=== PATIENT | female | born 1935 | race Two or more races ===

== ENCOUNTER 2017-06-23 01:09 | Inpatient (IN) | payer MEDICARE, MEDICAID ==
[~2017-06-23] VITALS: Ht 162.6 cm; Wt 105.4 kg
[~2017-06-23 01:09] MED LIST: BLOO-129 IN; ENAL10TA75 PO; FERR325T28 PO; GLYB5TAB7 PO; HUM10VIA SQ; INSU100V7 SQ; METO-304 PO; ZOLP10TA6 PO
--- NOTE | 2017-06-23 01:10 | NUR ---
TO BED 4 AN 81 YO FEMALE PT BIBA#102 FROM HOME, PT C/O SOB AND CHEST PRESSURE X 2 DAYS PT WAS GIVEN WITH 5MG ALBUTEROL. UPON ARRIVAL, PATIENT IS AAOX3, ST HELENIAN SPEAKING, NAD NOTED. VSS. NONDIAPHORETIC. PLACED ON CARDIAC AND VS MONITORING. KEPT HOB ELEVATED. COMFORT MEASURES RENDERED.
--- NOTE | 2017-06-23 01:24 | NUR ---
Dr Garcia at bedside to evaluate patient.
[2017-06-23] MEDS ORDERED: predniSONE 20 MG TABLET PO ONE (01:30)
[2017-06-23] MEDS ORDERED: ALBUTEROL FS 2.5 MG/3 ML VIAL.NEB CONTNEB ONE (01:30)
[2017-06-23] MEDS ORDERED: ASPIRIN 81 MG TAB.CHEW PO ONE (01:30)
[2017-06-23] MEDS ORDERED: ALBUTEROL FS 2.5 MG/3 ML VIAL.NEB ONE (01:31)
--- NOTE | 2017-06-23 01:35 | NUR ---
STARTED A SALINE LOCK ON THE RAC G20, BLOOD DRAWN AND SENT TO LAB.
[2017-06-23] MEDS ORDERED: ASPIRIN 81 MG TAB.CHEW ONE (01:49)
[2017-06-23] MEDS ORDERED: predniSONE 20 MG TABLET ONE (01:49)
[2017-06-23 02:00] LABS: BASOPHILS % (AUTO) 0.4 % (0.0-2.0); EOSINOPHILS % (AUTO) 0.4 % (0.0-6.0); HEMATOCRIT 26 % (33-45); HEMOGLOBIN 8.1 g/dL (11.5-14.8); LYMPHOCYTES # (AUTO) 3.3 /CMM (0.8-4.8); LYMPHOCYTES % (AUTO) 47.1 % (20.0-44.0); MEAN CORPUSCULAR HEMOGLOBIN 26 PG (26.0-33.0); MEAN CORPUSCULAR HGB CONC 31 g/dl (31.0-36.0); MEAN CORPUSCULAR VOLUME 84 fL (82-100); MONOCYTES # (AUTO) 1.1 /CMM (0.1-1.30); MONOCYTES % (AUTO) 15.9 % (2.0-12.0); NEUTROPHILS # (AUTO) 2.5 /CMM (1.8-8.9); NEUTROPHILS % (AUTO) 36.2 % (43.0-81.0); PLATELET COUNT (AUTO) 236 /CMM (150-450); RDW COEFFICIENT OF VARIATION 16.5 (11.5-15.0); RED BLOOD CELL COUNT(AUTO) 3.05 MIL/uL (4.0-5.2); WHITE BLOOD COUNT (AUTO) 6.9 K/uL (4.3-11.0)
[2017-06-23 02:13] LABS: D-DIMER 1.08 mg/L(FEU (0.17-0.50); INR 0.99 (0.87-1.13); PROTHROMBIN TIME 10.3 SECS (9.5-12.7)
[2017-06-23 02:19] LABS: ALANINE AMINOTRANSFERASE 20 U/L (12-78); ALBUMIN 3.1 g/dL (3.4-5.0); ALKALINE PHOSPHATASE 102 U/L (46-116); ASPARTATE AMINOTRANSFERASE 16 U/L (15-37); B-TYPE NATRIURETIC PEPTIDE 4768 PG/ML (0-125); BILIRUBIN,DIRECT 0.1 mg/dL (0.0-0.2); BILIRUBIN,TOTAL 0.3 mg/dL (0.2-1.0); CALCIUM, SERUM 8.3 mg/dL (8.5-10.1); CARBON DIOXIDE 29 mmol/L (21-32); CHLORIDE 102 mmol/L (98-107); CREATININE 1.9 mg/dL (0.6-1.3); GLUCOSE 349 mg/dL (74-106); POTASSIUM 4.4 mmol/L (3.5-5.1); SODIUM SERUM 137 mmol/L (136-145); UREA NITROGEN, BLOOD 45 mg/dL (7-18)
--- NOTE | 2017-06-23 03:16 | NUR ---
DR. GRADY JOYNER
[2017-06-23] MEDS ORDERED: REPA2TAB9 PO (03:17)
[2017-06-23] MEDS ORDERED: ALPR0.255 PO (03:17)
[2017-06-23] MEDS ORDERED: FERR325T28 PO (03:24)
[2017-06-23] MEDS ORDERED: METO25TA6 PO (03:24)
[2017-06-23] MEDS ORDERED: ATOR20TA PO (03:24)
[2017-06-23] MEDS ORDERED: INSU3INS9 SQ (03:24)
[2017-06-23] MEDS ORDERED: LISI-607 PO (03:24)
[2017-06-23] MEDS ORDERED: FURO40SO2 PO (03:24)
[2017-06-23] MEDS ORDERED: ZOLP10TA6 PO (03:24)
--- NOTE | 2017-06-23 03:26 | NUR ---
TELE 307-6
--- NOTE | 2017-06-23 03:33 | NUR ---
Report given to Chiquita BROTHERS for admission and rae.
--- NOTE | 2017-06-23 03:35 | NUR ---
RECEIVED REPORT FROM NOVEMBER IN THE ED.
[2017-06-23 04:00] VITALS: BP 112/47
--- NOTE | 2017-06-23 04:00 | NUR ---
CAREERS ADVISER ADMISSION NOTES PT ARRIVED ON TO THE UNIT AT 0400 VIA GURNEY AND DAUGHTER AT SIDE. PT HAS A R AC #20 IV. NO COMPLAINTS OF PAIN OR SOB AT THIS TIME. PT DAUGHTER STATED THAT IT IS HARD FOR HER TO BREATH WHEN FLAT ON BACK. PT V/S ARE STABLE. PT ON 2L O2 VIA NASAL CANNULA. PT TELE MONITORED: AFIB WITH A RATE OF 104. ORIENTED PT TO USE OF CALL LIGHT. WILL CONTINUE TO MONITOR. SAFETY PRECAUTIONS IN PLACE, BED IN LOW LOCKED POSITION, WITH 2X SIDERAILS UP.
--- NOTE | 2017-06-23 04:00 | NUR ---
Transferred patient to tele bed 307-2 via als protocol, no incident noted.
[2017-06-23] MEDS ORDERED: DEXTROSE 50%-WATER 50 ML DISP.SYRIN IV PRN (05:30)
[2017-06-23] MEDS ORDERED: ONDANSETRON HCL/PF 4 MG/2 ML VIAL IVP PRN (05:30)
[2017-06-23] MEDS ORDERED: MORPHINE SULFATE INJ 2 MG/ML DISP.SYRIN IV PRN (05:30)
[2017-06-23] MEDS ORDERED: ACETAMINOPHEN 325 MG TABLET PO PRN (05:30)
[2017-06-23] MEDS: BLOOD SUGAR DIAGNOSTIC 1 EACH STRIP IN SCH ×4 (06:29→21:45)
--- NOTE | 2017-06-23 06:47 | NUR ---
NM:LUNG V/Q WAS COMPLETED. TECH:RB
[2017-06-23 06:51] LABS: HEMATOCRIT 26 % (33-45); HEMOGLOBIN 8.2 g/dL (11.5-14.8); LYMPHOCYTES # (AUTO) 0.6 /CMM (0.8-4.8); LYMPHOCYTES % (AUTO) 10.1 % (20.0-44.0); MEAN CORPUSCULAR HEMOGLOBIN 27 PG (26.0-33.0); MEAN CORPUSCULAR HGB CONC 32 g/dl (31.0-36.0); MEAN CORPUSCULAR VOLUME 86 fL (82-100); MONOCYTES # (AUTO) 0.3 /CMM (0.1-1.30); MONOCYTES % (AUTO) 4.5 % (2.0-12.0); NEUTROPHILS % (AUTO) 85.4 % (43.0-81.0); PLATELET COUNT (AUTO) 240 /CMM (150-450); RDW COEFFICIENT OF VARIATION 16.9 (11.5-15.0); RED BLOOD CELL COUNT(AUTO) 3.03 MIL/uL (4.0-5.2); WHITE BLOOD COUNT (AUTO) 5.9 K/uL (4.3-11.0)
[2017-06-23 06:59] LABS: ALANINE AMINOTRANSFERASE 20 U/L (12-78); ALBUMIN 3.2 g/dL (3.4-5.0); ALKALINE PHOSPHATASE 101 U/L (46-116); ASPARTATE AMINOTRANSFERASE 16 U/L (15-37); BILIRUBIN,TOTAL 0.3 mg/dL (0.2-1.0); CALCIUM, SERUM 8.3 mg/dL (8.5-10.1); CARBON DIOXIDE 25 mmol/L (21-32); CHLORIDE 101 mmol/L (98-107); CREATININE 2.1 mg/dL (0.6-1.3); MAGNESIUM 1.8 mg/dL (1.8-2.4); PHOSPHORUS 4.1 mg/dL (2.5-4.9); POTASSIUM 4.4 mmol/L (3.5-5.1); SODIUM SERUM 136 mmol/L (136-145); UREA NITROGEN, BLOOD 48 mg/dL (7-18)
[2017-06-23 07:01] LABS: TROPONIN I 0.078 ng/mL (0.00-0.056)
--- NOTE | 2017-06-23 07:01 | NUR ---
HEALTH EQUIPMENT SERVICER CLOSING NOTES PT RESTING IN BED. DAUGHTER AT BEDSIDE. NO COMPLAINTS OF PAIN AT THIS TIME. PT COMPLAINS OF SOB WHEN LAYING FLAT. PT ABLE TO AMBULATE TO BEDSIDE COMMODE. PT HAS A R AC #20 IV PATENT AND INTACT. SAFETY PRECAUTIONS IN PLACE. BED IN LOW LOCKED, POSITION, 2XSIDERAILS UP AND CALL LIGHT WITHIN REACH. WILL ENDORSE TO DAY SHIFT NURSE FOR CONTINUITY OF CARE.
[2017-06-23 07:06] LABS: CHOLESTEROL 116 mg/dL (<200); HDL CHOLESTEROL 35 mg/dL (40-60); LDL 52 mg/dL (0-99); THYROID STIMULATING HORMONE 0.339 uIU/mL (0.358-3.74); TRIGLYCERIDES 205 mg/dL (30-150)
--- NOTE | 2017-06-23 07:22 | NUR ---
RN OPENING NOTES RECEIVED PATIENT IN BED RESTING, DAUGHTER AT BED SIDE. NO ACUTE DISTRESS. ON 2LPM O2 VIA NC, HEAD OF BED ELEVATED. DENIES PAIN AT THE MOMENT. ON TELEMONITOR, AFIB HR 94. IV SITE INTACT AND PATENT. KEPT PATIENT SAFE AND COMFORTABLE. BED IN LOW POSITION, LOCKED, SIDERAILS UPX2. CALL LIGHT IN REACH. WILL CONTINUE TO MONITOR ACCORDINGLY.
[2017-06-23 07:28] LABS: IRON, SERUM 21 ug/dl (50-175); TOTAL IRON BINDING CAPACITY 355 ug/dl (250-450)
[2017-06-23 07:33] LABS: GLUCOSE 465 mg/dL (74-106)
--- NOTE | 2017-06-23 07:34 | NUR ---
RECEIVED A CALL FROM THE LAB THAT THE PATIENT HAS A CRITICAL LAB VALUE. PT GLUCOSE IS 465. DEVON ASIF, DAY SHIFT NURSE AWARE.
--- NOTE | 2017-06-23 07:55 | NUR ---
RN NOTES RECHECK BLOOD GLUCOSE LEVEL, AK=[id number], WILL NOTIFY .
[2017-06-23 08:00] VITALS: BP 114/60
--- NOTE | 2017-06-23 08:15 | NUR ---
RN NOTES DR HIGGINBOTHAM NOTIFIED OF PATIENT BLOOD GLUCOSE LEVEL. NO NEW ORDERS
[2017-06-23] MEDS ORDERED: FERROUS SULFATE (325 MG) 325 MG/TAB TABLET PO SCH ×2 (09:00)
[2017-06-23] MEDS ORDERED: BUMETANIDE INJ 0.25 MG/ML VIAL IV SCH (09:00)
--- NOTE | 2017-06-23 09:00 | NUR ---
RN NOTES DR JUNG ON BEDSIDE TALKING TO THE DAUGHTER AND PATIENT. NO NEW ORDERS NOTED. PATIENT NOT A CANDIDATE FOR ANTICOAGULANT PER DR JUNG.
[2017-06-23] MEDS: PANTOPRAZOLE 40 MG TABLET.DR PO SCH (09:03)
[2017-06-23] MEDS: DOCUSATE SODIUM 100 MG CAPSULE PO SCH ×2 (09:04→16:29)
[2017-06-23] MEDS: METOPROLOL TARTRATE 25 MG TABLET PO SCH ×2 (09:10→16:30)
[2017-06-23] MEDS: INSULIN REGULAR, HUMAN 100 UNIT/ML 3 ML VIAL SQ PRN (09:16)
--- NOTE | 2017-06-23 09:18 | NUR ---
RN NOTES LK=822, 20 UNITS INSULIN GIVEN ORDERED. WILL MONITOR ACCORDINGLY.
[2017-06-23] MEDS: FUROSEMIDE 100 MG/10 ML VIAL IV SCH ×3 (11:19→17:55)
[2017-06-23] MEDS: REPAGLINIDE 2 MG TABLET PO SCH ×3 (11:19→16:30)
[2017-06-23] MEDS: LISINOPRIL (5MG) 5 MG TABLET PO SCH (11:20)
[2017-06-23] MEDS ORDERED: INSULIN REGULAR, HUMAN 100 UNIT/ML 3 ML VIAL IV ONE (11:30)
--- NOTE | 2017-06-23 11:52 | NUR ---
RN NOTES BS= 584, NOTIFIED DR VUONG. NEW ORDER OF ONE TIME INSULIN 12 UNITS IV NOTED AND CARRIED OUT.
[2017-06-23 12:00] VITALS: BP 108/52
--- NOTE | 2017-06-23 15:37 | NUR ---
RN NOTES BS= 554 mg/dl. NOTIFIED DR HIGGINBOTHAM. NEW ORDER OF REGULAR INSULIN 12 UNITS IVP ONCE. WILL MONITOR ACCORDINGLY.
[2017-06-23 16:00] VITALS: BP 99/56
[2017-06-23] MEDS ORDERED: INSULIN REGULAR, HUMAN 100 UNIT/ML 10 ML VIAL IV ONE ×2 (16:00→18:00)
[2017-06-23] MEDS: SOD FERRIC GLUC 125 MG in IV NS 0.9% 100 ML IV SCH (16:14)
--- NOTE | 2017-06-23 18:15 | NUR ---
RN NOTES BS= 472 mg/dl. NOTIFIED DR HIGGINBOTHAM, NEW ORDER OF 12 UNITS INSULIN REGULAR IVP X1 NOTED AND CARRIED OUT.
[2017-06-23 19:16] LABS: CREATININE, URINE 30.4 MG/DL (30.0-125.0)
--- NOTE | 2017-06-23 19:20 | NUR ---
RN CLOSING NOTES PATIENT IN BED RESTING, DAUGHTER ON BEDSIDE. NO ACUTE DISTRESS, NO SOB NOTED, DENIES PAIN OR DISCOMFORT. ALL NEEDS ATTENDED AND PROVIDED. KEPT PATIENT SAFE AND COMFORTABLE. BED IN LOCKED, LOW POSITION, HOB ELEVATED, SIDERAILS UPX2, CALL LIGHT IN REACH. ENDORSED TO OFFAL WORKER RN FOR MONI.
--- NOTE | 2017-06-23 19:30 | NUR ---
ROR ENGINEER OPENING NOTES PT RESTING IN BED. DAUGHTER AT BEDSIDE. NO COMPLAINTS OF PAIN AT THIS TIME. PT ABLE TO AMBULATE TO BEDSIDE COMMODE. PT HAS A R AC #20 IV PATENT AND INTACT. SAFETY PRECAUTIONS IN PLACE. BED IN LOW LOCKED, POSITION, 2XSIDERAILS UP AND CALL LIGHT WITHIN REACH. WILL CONTINUE TO MONITOR.
[2017-06-23 20:15] VITALS: BP 105/56
[2017-06-23] MEDS: ATORVASTATIN 10 MG TABLET PO SCH (21:45)
--- NOTE | 2017-06-23 21:50 | NUR ---
PT BLOOD GLUCOSE LEVEL IS 495. WILL CALL DR TO F/U.
--- NOTE | 2017-06-23 22:00 | NUR ---
RN NOTES SPOKE WITH BEATRIZ LIFT MECHANIC, REGARDING UNCONTROLLED BLOOD SUGAR LEVEL. BEATRIZ ORDERED FOR PT TO BE TRANSFERRED TO ICU FOR INSULIN DRIP. WILL ENDORSE TO TO ICU NURSE FOR CONTINUITY OF CARE.
--- NOTE | 2017-06-23 22:35 | NUR ---
TRANSPORTED PT OFF THE UNIT VIA BED. PT ACCOMPANIED BY DAUGHTER. PT CHART AND BELONGINGS TRANSPORTED WITH PT. GAVE REPORT TO ZEV ESPINAL.
--- NOTE | 2017-06-23 23:00 | NUR ---
CLERICAL CLERK - REC'D PT. AT 22:30 FROM 3WEST DUE TO DKA DX. PT'S BS'S HAVE BEEN IN THE 400-500'S ALL DAY. PT. IS TO BE STARTED ON INSULIN GTT. BEATRIZ ROJO/JHOANA WAS PHONED FOR ORDERS. ORDERS REC'D. PT'S DAUGHTER AT BS. ACCU - CHECKS WILL BE DONE Q ONE HR. VSS. AFEBRILE. MONITOR CLOSELY.
[2017-06-23] MEDS ORDERED: INSULIN REGULAR, HUMAN 100 UNIT in IV NS 0.9% 99 ML IV PRN ×2 (23:30)
[2017-06-23] MEDS ORDERED: INSULIN REGULAR, HUMAN 100 UNIT/ML 3 ML VIAL ONE (23:37)
[2017-06-24] VITALS (29 sets, daily range): BP systolic 94–122; BP diastolic 44–70
--- NOTE | 2017-06-24 02:00 | NUR ---
PAYROLL BENEFITS CLERK - PT'S BS'S REMAIN IN THE 400'S, BUT IS COMING DOWN SLOWLY. CONT. Q/HR ACCUCHECKS. CONT. POC.
[2017-06-24 04:56] LABS: HEMATOCRIT 25 % (33-45); LYMPHOCYTES # (AUTO) 0.9 /CMM (0.8-4.8); LYMPHOCYTES % (AUTO) 11.6 % (20.0-44.0); MEAN CORPUSCULAR HEMOGLOBIN 27 PG (26.0-33.0); MEAN CORPUSCULAR HGB CONC 32 g/dl (31.0-36.0); MEAN CORPUSCULAR VOLUME 85 fL (82-100); MONOCYTES # (AUTO) 0.9 /CMM (0.1-1.30); MONOCYTES % (AUTO) 11.5 % (2.0-12.0); NEUTROPHILS # (AUTO) 5.8 /CMM (1.8-8.9); NEUTROPHILS % (AUTO) 76.9 % (43.0-81.0); PLATELET COUNT (AUTO) 238 /CMM (150-450); RDW COEFFICIENT OF VARIATION 16.6 (11.5-15.0); RED BLOOD CELL COUNT(AUTO) 2.93 MIL/uL (4.0-5.2); WHITE BLOOD COUNT (AUTO) 7.5 K/uL (4.3-11.0)
[2017-06-24 05:55] LABS: ALANINE AMINOTRANSFERASE 18 U/L (12-78); ALKALINE PHOSPHATASE 92 U/L (46-116); ASPARTATE AMINOTRANSFERASE 13 U/L (15-37); BILIRUBIN,TOTAL 0.2 mg/dL (0.2-1.0); CALCIUM, SERUM 8.4 mg/dL (8.5-10.1); CARBON DIOXIDE 28 mmol/L (21-32); CHLORIDE 101 mmol/L (98-107); CREATININE 2.1 mg/dL (0.6-1.3); GLUCOSE 284 mg/dL (74-106); MAGNESIUM 1.9 mg/dL (1.8-2.4); PHOSPHORUS 3.4 mg/dL (2.5-4.9); POTASSIUM 4.7 mmol/L (3.5-5.1); SODIUM SERUM 137 mmol/L (136-145); TOTAL PROTEIN, SERUM 6.8 g/dL (6.4-8.2); UREA NITROGEN, BLOOD 56 mg/dL (7-18)
[2017-06-24 06:15] LABS: TROPONIN I 3.073 ng/mL (0.00-0.056)
[2017-06-24 06:19] LABS: BAND % (MANUAL) 10 % (0.0-5.0); LYMPHOCYTES % (MANUAL) 14 % (16-48); MONOCYTES % (MANUAL) 15 % (0-11.0); NEUTROPHILS % (MANUAL) 61 (42-76)
--- NOTE | 2017-06-24 06:20 | NUR ---
GARMENT FOLDER - LAB PHONED W/REPORT TO ARCHITECTURE CONSULTANTZEV CASTAÑEDA. TROPONIN AT 3.073. DOCUMENTED[address] DR. GRADY VALENZUELA PHONED. AWAITING CALL BACK. CONT. POC.
[2017-06-24] MEDS: BLOOD SUGAR DIAGNOSTIC 1 EACH STRIP IN SCH ×4 (08:29→22:30)
[2017-06-24] MEDS: DOCUSATE SODIUM 100 MG CAPSULE PO SCH ×2 (08:31→18:01)
[2017-06-24] MEDS: METOPROLOL TARTRATE 25 MG TABLET PO SCH ×3 (08:32→18:00)
[2017-06-24] MEDS: PANTOPRAZOLE 40 MG TABLET.DR PO SCH (08:32)
[2017-06-24] MEDS: LISINOPRIL (5MG) 5 MG TABLET PO SCH (08:32)
[2017-06-24] MEDS: REPAGLINIDE 2 MG TABLET PO SCH ×3 (08:37→18:01)
[2017-06-24] MEDS: ASPIRIN 81 MG TAB.CHEW PO SCH (10:38)
[2017-06-24] MEDS: *INSULIN REGULAR(HUMULIN R)HUM 100 UNIT/ML VIAL SQ PRN ×3 (11:19→22:32)
[2017-06-24] MEDS: SOD FERRIC GLUC 125 MG in IV NS 0.9% 100 ML IV SCH ×2 (14:00→18:05)
--- NOTE | 2017-06-24 16:17 | NUR ---
CUSTOMER EXPERIENCE MANAGER NOTE RECEIVED PT ON BED ,AOX4, DENIES PAIN, DAUGHTER AT BEDSIDE, NO SOB, NO DISTRESS. CALL LIGHT WITHIN REACH WILL CONTINUE TO MONITOR.
[2017-06-24] MEDS: ALPRAZOLAM 0.25 MG TABLET PO PRN (19:19)
[2017-06-24] MEDS: ATORVASTATIN 10 MG TABLET PO SCH (22:37)
[2017-06-24] MEDS ORDERED: GUAIFENESIN/D-METHORPHAN HB 5 ML UDC ONE (23:00)
[2017-06-24] MEDS: GUAIFENESIN/D-METHORPHAN HB 5 ML UDC PO PRN (23:02)
[2017-06-25] VITALS: BP 120/58
[2017-06-25] MEDS: ZOLPIDEM TARTRATE 10 MG TABLET PO PRN (00:50)
[2017-06-25] MEDS: METOPROLOL TARTRATE 25 MG TABLET PO SCH ×4 (00:51→17:17)
[2017-06-25 04:00] VITALS: BP 126/54
[2017-06-25] MEDS: BLOOD SUGAR DIAGNOSTIC 1 EACH STRIP IN SCH ×4 (07:53→22:00)
[2017-06-25] MEDS: INSULIN REGULAR, HUMAN 100 UNIT/ML 3 ML VIAL SQ PRN ×2 (07:56→12:02)
[2017-06-25 08:00] VITALS: BP 107/44
[2017-06-25] MEDS: DOCUSATE SODIUM 100 MG CAPSULE PO SCH ×2 (08:45→16:40)
[2017-06-25] MEDS: ASPIRIN 81 MG TAB.CHEW PO SCH (08:46)
[2017-06-25] MEDS: PANTOPRAZOLE 40 MG TABLET.DR PO SCH (08:46)
[2017-06-25] MEDS: REPAGLINIDE 2 MG TABLET PO SCH ×3 (09:04→16:40)
[2017-06-25] MEDS: ALPRAZOLAM 0.25 MG TABLET PO PRN (09:24)
[2017-06-25 09:27] LABS: BASOPHILS % (AUTO) 0.3 % (0.0-2.0); HEMATOCRIT 25 % (33-45); HEMOGLOBIN 7.8 g/dL (11.5-14.8); LYMPHOCYTES # (AUTO) 1.4 /CMM (0.8-4.8); LYMPHOCYTES % (AUTO) 16.3 % (20.0-44.0); MEAN CORPUSCULAR HEMOGLOBIN 26 PG (26.0-33.0); MEAN CORPUSCULAR HGB CONC 31 g/dl (31.0-36.0); MEAN CORPUSCULAR VOLUME 85 fL (82-100); MONOCYTES # (AUTO) 0.8 /CMM (0.1-1.30); NEUTROPHILS # (AUTO) 6.4 /CMM (1.8-8.9); NEUTROPHILS % (AUTO) 74.4 % (43.0-81.0); PLATELET COUNT (AUTO) 228 /CMM (150-450); RDW COEFFICIENT OF VARIATION 16.7 (11.5-15.0); RED BLOOD CELL COUNT(AUTO) 2.94 MIL/uL (4.0-5.2); WHITE BLOOD COUNT (AUTO) 8.6 K/uL (4.3-11.0)
[2017-06-25 09:40] LABS: ALANINE AMINOTRANSFERASE 14 U/L (12-78); ALBUMIN 2.9 g/dL (3.4-5.0); ALKALINE PHOSPHATASE 86 U/L (46-116); ASPARTATE AMINOTRANSFERASE 13 U/L (15-37); BILIRUBIN,TOTAL 0.3 mg/dL (0.2-1.0); CALCIUM, SERUM 8.1 mg/dL (8.5-10.1); CARBON DIOXIDE 28 mmol/L (21-32); CHLORIDE 101 mmol/L (98-107); CREATININE 1.7 mg/dL (0.6-1.3); GLUCOSE 245 mg/dL (74-106); MAGNESIUM 1.8 mg/dL (1.8-2.4); PHOSPHORUS 2.8 mg/dL (2.5-4.9); POTASSIUM 5.1 mmol/L (3.5-5.1); SODIUM SERUM 136 mmol/L (136-145); TOTAL PROTEIN, SERUM 6.6 g/dL (6.4-8.2); UREA NITROGEN, BLOOD 49 mg/dL (7-18)
[2017-06-25] MEDS: ALBUTEROL FS 2.5 MG/0.5 ML VIAL.NEB NEB PRN ×3 (10:10→23:50)
[2017-06-25] MEDS: SOD FERRIC GLUC 125 MG in IV NS 0.9% 100 ML IV SCH (14:49)
[2017-06-25 16:00] VITALS: BP 103/45
[2017-06-25] MEDS ORDERED: BUMETANIDE INJ 4 MG in IV NS 0.9% 24 ML IV ONE (16:00)
[2017-06-25] MEDS: FUROSEMIDE 40 MG/4 ML VIAL IV SCH (18:19)
--- NOTE | 2017-06-25 20:00 | NUR ---
Recieved patient in bed placed in a chair at the bedside with one nurse assist. Alert and orientated. Food brought in by dtr for the patient and consumed 100%. Via auscultation exp wheezing O2 on 2 Liters and sats 95%
[2017-06-25 20:13] VITALS: BP 110/55
[2017-06-25] MEDS: *INSULIN REGULAR(HUMULIN R)HUM 100 UNIT/ML VIAL SQ PRN (21:39)
[2017-06-25] MEDS: ATORVASTATIN 10 MG TABLET PO SCH (21:41)
[2017-06-26 00:01] VITALS: BP 126/53
[2017-06-26] MEDS: ZOLPIDEM TARTRATE 10 MG TABLET PO PRN ×2 (00:13→23:48)
[2017-06-26] MEDS: METOPROLOL TARTRATE 25 MG TABLET PO SCH ×4 (00:15→17:16)
[2017-06-26] MEDS: GUAIFENESIN/D-METHORPHAN HB 5 ML UDC PO PRN (04:02)
--- NOTE | 2017-06-26 04:33 | NUR ---
Patient is Alert and orientated X4. Arminian speaking, but able to understand some englih and gestors. Smiles frequently. Dtr stayed with Mother thru the night, assisting in her care. Patient is able to stand with minimal assist and move into cair. She will alternate thru the night bed to chair, D/T she says the bed hurts her back. Robutussion given for cough and effective. Ambien was given for sleep and effect for 3 hours sleeping in the chair. O2 on at 2 liters at times she will remove, but sats Good at 94 - 97 %. Noted via auscultation exp, wheezing
[2017-06-26 05:05] VITALS: BP 110/55
[2017-06-26] MEDS: ALBUTEROL FS 2.5 MG/0.5 ML VIAL.NEB NEB PRN (07:25)
[2017-06-26] MEDS: BLOOD SUGAR DIAGNOSTIC 1 EACH STRIP IN SCH ×4 (07:43→20:45)
[2017-06-26] MEDS: INSULIN REGULAR, HUMAN 100 UNIT/ML 3 ML VIAL SQ PRN ×3 (07:46→17:15)
[2017-06-26 08:00] VITALS: BP 113/60
[2017-06-26] MEDS: REPAGLINIDE 2 MG TABLET PO SCH ×3 (08:11→16:54)
[2017-06-26] MEDS: DOCUSATE SODIUM 100 MG CAPSULE PO SCH ×2 (08:11→16:53)
[2017-06-26] MEDS: PANTOPRAZOLE 40 MG TABLET.DR PO SCH (08:11)
[2017-06-26] MEDS: ASPIRIN 81 MG TAB.CHEW PO SCH (08:11)
[2017-06-26] MEDS: FUROSEMIDE 40 MG/4 ML VIAL IV SCH ×2 (08:11→16:53)
--- NOTE | 2017-06-26 08:12 | NUR ---
SOFT SUGAR SUPERVISOR NOTE PT DAUGHTER @ BEDSIDE REFUSED ASPIRIN. PATIENT DAUGHTER STATED IT LOWERS HER H/H.
[2017-06-26 08:32] LABS: BASOPHILS % (AUTO) 0.3 % (0.0-2.0); EOSINOPHILS % (AUTO) 0.3 % (0.0-6.0); HEMATOCRIT 25 % (33-45); HEMOGLOBIN 8.1 g/dL (11.5-14.8); LYMPHOCYTES # (AUTO) 2.2 /CMM (0.8-4.8); LYMPHOCYTES % (AUTO) 28.8 % (20.0-44.0); MEAN CORPUSCULAR HEMOGLOBIN 27 PG (26.0-33.0); MEAN CORPUSCULAR HGB CONC 32 g/dl (31.0-36.0); MEAN CORPUSCULAR VOLUME 85 fL (82-100); MONOCYTES # (AUTO) 0.9 /CMM (0.1-1.30); MONOCYTES % (AUTO) 11.9 % (2.0-12.0); NEUTROPHILS # (AUTO) 4.4 /CMM (1.8-8.9); NEUTROPHILS % (AUTO) 58.7 % (43.0-81.0); PLATELET COUNT (AUTO) 225 /CMM (150-450); RDW COEFFICIENT OF VARIATION 16.8 (11.5-15.0); RED BLOOD CELL COUNT(AUTO) 2.95 MIL/uL (4.0-5.2); WHITE BLOOD COUNT (AUTO) 7.5 K/uL (4.3-11.0)
[2017-06-26 09:11] LABS: ALANINE AMINOTRANSFERASE 17 U/L (12-78); ALBUMIN 2.9 g/dL (3.4-5.0); ALKALINE PHOSPHATASE 86 U/L (46-116); ASPARTATE AMINOTRANSFERASE 17 U/L (15-37); BILIRUBIN,TOTAL 0.4 mg/dL (0.2-1.0); CALCIUM, SERUM 8.4 mg/dL (8.5-10.1); CARBON DIOXIDE 29 mmol/L (21-32); CHLORIDE 100 mmol/L (98-107); CREATININE 1.8 mg/dL (0.6-1.3); MAGNESIUM 1.9 mg/dL (1.8-2.4); PHOSPHORUS 3.7 mg/dL (2.5-4.9); POTASSIUM 5.7 mmol/L (3.5-5.1); SODIUM SERUM 135 mmol/L (136-145); TOTAL PROTEIN, SERUM 6.7 g/dL (6.4-8.2); UREA NITROGEN, BLOOD 60 mg/dL (7-18)
[2017-06-26 09:20] LABS: GLUCOSE 360 mg/dL (74-106)
[2017-06-26] MEDS ORDERED: SODIUM POLYSTYRENE SULFONATE 15 G/60 ML BOTTLE PO ONE (14:00)
[2017-06-26] MEDS: SOD FERRIC GLUC 125 MG in IV NS 0.9% 100 ML IV SCH (14:47)
[2017-06-26] MEDS ORDERED: AZITHROMYCIN 250 MG TABLET PO SCH (15:00)
[2017-06-26] MEDS ORDERED: CEFTRIAXONE 1 G in IV D5W 50 ML IV SCH (15:00)
[2017-06-26 16:00] VITALS: BP 113/49
[2017-06-26 20:00] VITALS: BP 125/49
--- NOTE | 2017-06-26 20:00 | NUR ---
RN NOTES RECEIVED PT. AWAKE ON BED, THEODORE SPEAKING A/OX4, DAUGHTER AT BEDSIDE, DENIES PAIN, NO SOB, CALL LIGHT WIOTHIN REACH, SIDERAILS UPX2 CONTINUE TO MONITOR
[2017-06-26] MEDS: INSULIN DETEMIR 100 UNIT/ML CARTRIDGE SQ SCH (20:53)
[2017-06-26] MEDS: *INSULIN REGULAR(HUMULIN R)HUM 100 UNIT/ML VIAL SQ PRN (20:54)
[2017-06-26] MEDS: ATORVASTATIN 10 MG TABLET PO SCH (21:12)
--- NOTE | 2017-06-26 23:50 | NUR ---
RN NOTES PT. ASKED FOR SLEEPING PILL- AMBIEN 5MG PO GIVEN ORDERED, V/S STABLE
--- NOTE | 2017-06-27 | NUR ---
RN NOTES PT. DAUGHTER TOLD ME NOT TO GIVE PT. LOPRESSOR 50 MG PO. THE IMPORTANCE OF THE MEDICATION WAS EXPLAINED , STILL DAUGHTER REFUSED IT
[2017-06-27] MEDS: GUAIFENESIN/D-METHORPHAN HB 5 ML UDC PO PRN (02:22)
--- NOTE | 2017-06-27 02:25 | NUR ---
RN NOTES COMPLAINED 0F COUGHING ROBITUSSIN DM GIVEN ORDERED
[2017-06-27 04:00] VITALS: BP 114/51
[2017-06-27] MEDS: METOPROLOL TARTRATE 25 MG TABLET PO SCH ×2 (06:00)
--- NOTE | 2017-06-27 06:00 | NUR ---
RN NOTES PT. DAUGHTER STILL REFUSING FOR ME TO GIVE LOPRESSOR 50 MG PO. EXPLAINED THE IMPORTANCE OF THE MEDICATION BUT STILL DOESN'T WANT ME TO GIVE IT. CHARGE NURSE MADE AWARE
--- NOTE | 2017-06-27 06:33 | NUR ---
RN NOTES PT. IS AWAKE, SITTING IN THE CHAIR, DENIES PAIN, NO SOB, DAUGHTER AT BEDSIDE, CALL LIGHT WITHIN REACH, SIDERAILS UPX2 PT. NEEDS ATTENDED
--- NOTE | 2017-06-27 07:30 | NUR ---
RN NOTES RECEIVED PT. AWAKE ON BED, YI SPEAKING A/OX4, DAUGHTER AT BEDSIDE, ON 2L O2 NC, NOT IN ANY DISTRESS, DENIES PAIN, LYNDSAY MIDLINE, FLUSHES WELL, SITE CLEAR. DENIES PAIN, NO SOB, PERRY CATH IN PLACE WITH 150 ML OUTPUT. CALL LIGHT WITHIN REACH, SIDERAILS UPX2 WILL CONTINUE TO MONITOR
[2017-06-27 08:00] VITALS: BP_SYST 125; BP_SYST 143; BP_DIAS 57; BP_DIAS 63
[2017-06-27] MEDS: BLOOD SUGAR DIAGNOSTIC 1 EACH STRIP IN SCH (08:10)
[2017-06-27] MEDS: PANTOPRAZOLE 40 MG TABLET.DR PO SCH (08:12)
[2017-06-27 08:34] LABS: CALCIUM, SERUM 8.4 mg/dL (8.5-10.1); CARBON DIOXIDE 31 mmol/L (21-32); CHLORIDE 101 mmol/L (98-107); CREATININE 1.7 mg/dL (0.6-1.3); GLUCOSE 262 mg/dL (74-106); POTASSIUM 4.4 mmol/L (3.5-5.1); SODIUM SERUM 137 mmol/L (136-145); UREA NITROGEN, BLOOD 55 mg/dL (7-18)
[2017-06-27] MEDS: DOCUSATE SODIUM 100 MG CAPSULE PO SCH (09:10)
[2017-06-27] MEDS: ASPIRIN 81 MG TAB.CHEW PO SCH (09:10)
[2017-06-27] MEDS: REPAGLINIDE 2 MG TABLET PO SCH (09:10)
[2017-06-27] MEDS: INSULIN DETEMIR 100 UNIT/ML CARTRIDGE SQ SCH (09:12)
[2017-06-27] MEDS: *INSULIN REGULAR(HUMULIN R)HUM 100 UNIT/ML VIAL SQ PRN (09:13)
--- NOTE | 2017-06-27 09:30 | NUR ---
RN NOTES ADMINISTERED DUE MEDS.
[2017-06-27] MEDS ORDERED: FUROSEMIDE 100 MG/10 ML VIAL IV SCH (10:00)
--- NOTE | 2017-06-27 11:30 | NUR ---
ZEV JEFFREY PATIENT DISCHARGED TO HOME TODAY PER MD IN STABLE CONDITION. PROVIDED DC INSTRUCTIONS, MED RECON LIST AND HEALTH TEACHINGS. IV ACCESS, LYNDSAY MIDLINE REMOVED, NO BLEEDING, DRESSING IN PLACE, REMOVED PERRY CATH WITH 250 ML OUTPUT, TO FOLLOW UP WITH PCP IN 1 WEEK AND WILL MAKE OWN APPOINTMENT. ALL BELONGINGS CHECKED AND RETURNED, ALL PAPERWORKS SIGNED. DAUGHTER TO TAKE HOME PATIENT VIA PRIVATE CAR.
== END 2017-06-27 11:33 | disposition home or self-care (01) | DRG 280 ==
LOC: ER 01:11 → TELE 03:41 → ICU 23:07 → TELE1 06-24 15:48 → MEDSG1 06-25 11:02
PROVIDERS: ADMIT Internal Medicine; ATTEND Internal Medicine
PROC: 05H633Z Insertion of Infusion Device into Left Subclavian Vein, Percutaneous Approach (ICD-10-PCS; principal; 2017-06-24)
PROC: B547ZZA Ultrasonography of Left Subclavian Vein, Guidance (ICD-10-PCS; 2017-06-24)
DX: I11.0 Hypertensive heart disease with heart failure (principal); I21.4 Non-ST elevation (NSTEMI) myocardial infarction; E43 Unspecified severe protein-calorie malnutrition; N17.9 Acute kidney failure, unspecified; D68.59 Other primary thrombophilia; E10.22 Type 1 diabetes mellitus with diabetic chronic kidney disease; E10.65 Type 1 diabetes mellitus with hyperglycemia; E87.0 Hyperosmolality and hypernatremia; Z68.41 Body mass index [BMI] 40.0-44.9, adult; E83.42 Hypomagnesemia; I50.23 Acute on chronic systolic (congestive) heart failure; I13.0 Hypertensive heart and chronic kidney disease with heart failure and stage 1 through stage 4 chronic kidney disease, or unspecified chronic kidney disease; E66.01 Morbid (severe) obesity due to excess calories; I48.91 Unspecified atrial fibrillation; I35.0 Nonrheumatic aortic (valve) stenosis; Z90.10 Acquired absence of unspecified breast and nipple; E78.5 Hyperlipidemia, unspecified; Z85.3 Personal history of malignant neoplasm of breast; Z79.899 Other long term (current) drug therapy; Z79.4 Long term (current) use of insulin; F41.9 Anxiety disorder, unspecified; F32.9 Major depressive disorder, single episode, unspecified; D50.9 Iron deficiency anemia, unspecified; I89.0 Lymphedema, not elsewhere classified; I70.0 Atherosclerosis of aorta; J20.9 Acute bronchitis, unspecified; N18.9 Chronic kidney disease, unspecified; G47.33 Obstructive sleep apnea (adult) (pediatric)
CPT/HCPCS: 36415; 36569; 71010-TC; 76770-TC; 78582; 80048-TC; 80053-TC; 80061-TC; 80076-TC; 82306; 82570-TC; 82962-TC; 83540-TC; 83735-TC; 83880; 84100-TC; 84439-TC; 84443-TC; 84484-TC; 85025-TC; 85378-TC; 85730-TC; 87081-TC; 93307-TC; 94799-TC; A4606; A9540; A9567; J0696; J1815; J1940; J2916; J3490; J7030; J7060; Z7610

== ENCOUNTER 2017-11-05 09:01 | Inpatient (IN) | payer MEDICARE, MEDICAID ==
[~2017-11-05] VITALS: Ht 152.4 cm; Wt 104.4 kg
[~2017-11-05 09:01] MED LIST changes: +ALPR0.255 PO; +ATOR20TA PO; -BLOO-129 IN; -ENAL10TA75 PO; +FURO40SO2 PO; -GLYB5TAB7 PO; -HUM10VIA SQ; -INSU100V7 SQ; +INSU3INS9 SQ; +LISI-607 PO; -METO-304 PO; +METO25TA6 PO; +REPA2TAB9 PO
--- NOTE | 2017-11-05 09:01 | NUR ---
[id number] FROM HOME SOB SINCE YESTERDAY. PLACED ON MONITOR. AWAITING MD ORDER.
[2017-11-05 09:24] LABS: BASOPHILS % (AUTO) 0.5 % (0.0-2.0); EOSINOPHILS % (AUTO) 1.8 % (0.0-6.0); HEMATOCRIT 26 % (33-45); HEMOGLOBIN 8.4 g/dL (11.5-14.8); LYMPHOCYTES # (AUTO) 1.3 /CMM (0.8-4.8); LYMPHOCYTES % (AUTO) 16.3 % (20.0-44.0); MEAN CORPUSCULAR HGB CONC 32 g/dl (31.0-36.0); MEAN CORPUSCULAR VOLUME 82 fL (82-100); MONOCYTES # (AUTO) 0.9 /CMM (0.1-1.30); MONOCYTES % (AUTO) 11.5 % (2.0-12.0); NEUTROPHILS # (AUTO) 5.4 /CMM (1.8-8.9); NEUTROPHILS % (AUTO) 69.9 % (43.0-81.0); PLATELET COUNT (AUTO) 223 /CMM (150-450); RDW COEFFICIENT OF VARIATION 15.8 (11.5-15.0); RED BLOOD CELL COUNT(AUTO) 3.16 MIL/uL (4.0-5.2); WHITE BLOOD COUNT (AUTO) 7.7 K/uL (4.3-11.0)
[2017-11-05 09:42] LABS: INR 0.93 (0.85-1.15)
[2017-11-05 09:46] LABS: TROPONIN I < 0.017 ng/mL (0.00-0.056)
[2017-11-05 09:51] LABS: ALANINE AMINOTRANSFERASE 34 U/L (12-78); ALKALINE PHOSPHATASE 133 U/L (46-116); ASPARTATE AMINOTRANSFERASE 29 U/L (15-37); B-TYPE NATRIURETIC PEPTIDE 5331 PG/ML (0-125); BILIRUBIN,DIRECT 0.1 mg/dL (0.0-0.2); BILIRUBIN,TOTAL 0.4 mg/dL (0.2-1.0); CALCIUM, SERUM 8.4 mg/dL (8.5-10.1); CARBON DIOXIDE 23 mmol/L (21-32); CHLORIDE 101 mmol/L (98-107); GLUCOSE 299 mg/dL (74-106); SODIUM SERUM 136 mmol/L (136-145); TOTAL PROTEIN, SERUM 7.2 g/dL (6.4-8.2)
[2017-11-05 09:54] LABS: UREA NITROGEN, BLOOD 86 mg/dL (7-18)
[2017-11-05] MEDS ORDERED: FUROSEMIDE 40 MG/4 ML VIAL IV ONE (10:30)
[2017-11-05] MEDS ORDERED: FUROSEMIDE 40 MG/4 ML VIAL ONE (10:41)
[2017-11-05] MEDS ORDERED: FURO40TA5 PO (11:00)
[2017-11-05] MEDS ORDERED: METO5TAB7 PO (11:00)
--- NOTE | 2017-11-05 11:10 | NUR ---
GAVE REPORT TO CELIA BROTHERS ROOM 325-1 SOB CHF ADMITTING VICKI JEAN NP
[2017-11-05 12:04] LABS: APPEARANCE,URINE Slightly Cloudy (CLEAR); BILIRUBIN,URINE Negative (NEGATIVE); BLOOD, URINE Negative Ery/uL (NEGATIVE); COLOR,URINE Yellow (YELLOW); KETONES,URINE Negative (NEGATIVE); LEUKOCYTE ESTERASE ,URINE Trace (NEGATIVE); NITRITE, URINE Negative (NEGATIVE); PROTEIN,URINE Negative (NEGATIVE); UGLUCOSE Negative (NEGATIVE); UROBILINOGEN,URINE 0.2 EU/dL (0.2)
[2017-11-05 12:24] LABS: BACTERIA,URINE Moderate /HPF (None Seen); RBC,URINE 0-2 /HPF (0-2); SQUAMOUS EPITHELIAL CELL,UR Moderate /HPF (None Seen)
--- NOTE | 2017-11-05 12:35 | NUR ---
PANEL ON-CALL PAGED
[2017-11-05 12:50] LABS: CREATININE, URINE 36.9 MG/DL (30.0-125.0); URINE TOTAL PROTEIN 21.8 mg/dL (0-11.9)
[2017-11-05 13:24] LABS: EOSINOPHIL,URINE None Seen
[2017-11-05 13:30] VITALS: BP 102/61
[2017-11-05 13:53] VITALS: BP 102/61
--- NOTE | 2017-11-05 14:00 | NUR ---
DROP WIRERSHOVEL LOADER OPERATOR 82 YEARS OLD FEMALE, TAIWANESE SPEAKING ONLY, COOPERATIVE, APPEARS CALM AND RELAX. NEEDS RECORDING ENGINEER. V/S TAKEN AND RECORDED, LEADS APPLIED FOR TELE MONITOR. DENIES PAIN, NO COUGHING, NO C/O N/V. MADE COMFORTABLE IN BED. SKIN INTACT, ABLE TO TURN AND REPOSITION IN BED WITH ASSIST. IVC IN RFA G20 PATENT AND INTACT, FLUSHES WELL. SAFETY MEASURES IN PLACE. NOTIFIED GROUP BILLING COORDINATOR-TED FOR ADMISSION.
[2017-11-05 16:00] VITALS: BP 117/68
[2017-11-05] MEDS ORDERED: DEXTROSE 50%-WATER 50 ML DISP.SYRIN IV PRN (16:30)
[2017-11-05 16:47] LABS: IRON, SERUM 22 ug/dl (50-175); TOTAL IRON BINDING CAPACITY 374 ug/dl (250-450)
[2017-11-05] MEDS: BLOOD SUGAR DIAGNOSTIC 1 EACH STRIP IN SCH ×2 (17:04→22:12)
[2017-11-05] MEDS: METOPROLOL TARTRATE 25 MG TABLET PO SCH (17:06)
[2017-11-05] MEDS: REPAGLINIDE 2 MG TABLET PO SCH (18:41)
[2017-11-05] MEDS: INSULIN REGULAR, HUMAN 100 UNIT/ML 3 ML VIAL SQ PRN ×2 (18:41→22:10)
--- NOTE | 2017-11-05 19:21 | NUR ---
ROLL PICKER CLOSING NOTES DENIES PAIN. ON TELE MONITOR AFIB HR 95, OXYGEN AT 2L VIA NC, NO SOB. ABLE TO STAND UP WITH ASSIST, ASSISTED TO BSC, URINATED WITHOUT DIFFICULTY. BLOOD SUGAR MONITORED WITH ISS COVERAGE ORDERED. FOR PT, WOUND CARE CONSULT (BREAST FOLD REDNESS) LAB IN AM, SPUTUM COLLECT FOR RESPIRATORY GS. SAFETY MEASURES IN PLACE. WILL ENDORSE TO ONCOMING RN.
[2017-11-05 20:00] VITALS: BP 124/72
--- NOTE | 2017-11-05 20:00 | NUR ---
RN NOTES PATIENT IN BED, ALERT AND ORIENTED X3, BOTSWANAN SPEAKING ONLY, ON TELE WITH READING OF AFIB, RIGHT FA PERIPHERAL LINE IS PATENT AND SECURED WITH DRESSING, NEEDS ASSISTANCE TO TRANSFER FROM BED TO CHAIR, ON 4LPM VIA NC, SPO2 99%, DENIES PAIN AT THIS TIME, SURROUNDED BY FAMILY, NEEDS ATTENDED, CALL LIGHT WITHIN REACH.
[2017-11-05 22:00] VITALS: BP 124/72
[2017-11-05] MEDS: ATORVASTATIN 10 MG TABLET PO SCH (22:11)
[2017-11-05] MEDS: ZOLPIDEM TARTRATE 10 MG TABLET PO SCH (22:11)
[2017-11-05] MEDS ORDERED: LEVOFLOXACIN 750 MG /D5W 150ML 750 MG in PREMIX 1 EA IV SCH (23:00)
[2017-11-05] MEDS ORDERED: LEVOFLOXACIN 750 MG /D5W 150ML 150 ML IV ONE (23:26)
[2017-11-06] VITALS: BP 123/65
[2017-11-06 04:00] VITALS: BP 125/54
[2017-11-06] MEDS: INSULIN REGULAR, HUMAN 100 UNIT/ML 3 ML VIAL SQ PRN ×4 (06:33→21:54)
[2017-11-06] MEDS: BLOOD SUGAR DIAGNOSTIC 1 EACH STRIP IN SCH ×4 (06:34→21:47)
[2017-11-06 06:40] LABS: BASOPHILS % (AUTO) 0.3 % (0.0-2.0); EOSINOPHILS % (AUTO) 1.1 % (0.0-6.0); HEMATOCRIT 24 % (33-45); HEMOGLOBIN 7.7 g/dL (11.5-14.8); LYMPHOCYTES % (AUTO) 11.5 % (20.0-44.0); MEAN CORPUSCULAR HGB CONC 32 g/dl (31.0-36.0); MEAN CORPUSCULAR VOLUME 83 fL (82-100); MONOCYTES # (AUTO) 1.1 /CMM (0.1-1.30); MONOCYTES % (AUTO) 13.1 % (2.0-12.0); NEUTROPHILS # (AUTO) 6.4 /CMM (1.8-8.9); PLATELET COUNT (AUTO) 215 /CMM (150-450); RDW COEFFICIENT OF VARIATION 16.1 (11.5-15.0); WHITE BLOOD COUNT (AUTO) 8.6 K/uL (4.3-11.0)
--- NOTE | 2017-11-06 06:48 | NUR ---
RN NOTES PATIENT IS ALERT AND AWAKE, NO SOB, ON 2LPM VIA NC, LEFT ARM IV LINE IS PATENT, DENIES PAIN, WEAK, PREFERS BED SIDE COMMODE, NO ACUTE CHANGE DURING SHIFT. NEEDS ATTENDED, DAUGHTER AT THE BEDSIDE, CALL LIGHT WITHIN REACH.
[2017-11-06 07:05] LABS: ALANINE AMINOTRANSFERASE 26 U/L (12-78); ALBUMIN 2.6 g/dL (3.4-5.0); ALKALINE PHOSPHATASE 116 U/L (46-116); ASPARTATE AMINOTRANSFERASE 16 U/L (15-37); BILIRUBIN,TOTAL 0.4 mg/dL (0.2-1.0); CALCIUM, SERUM 8.1 mg/dL (8.5-10.1); CARBON DIOXIDE 28 mmol/L (21-32); CHLORIDE 103 mmol/L (98-107); GLUCOSE 262 mg/dL (74-106); MAGNESIUM 2.1 mg/dL (1.8-2.4); PHOSPHORUS 3.7 mg/dL (2.5-4.9); SODIUM SERUM 138 mmol/L (136-145); TOTAL PROTEIN, SERUM 6.8 g/dL (6.4-8.2); UREA NITROGEN, BLOOD 77 mg/dL (7-18)
[2017-11-06 08:00] VITALS: BP 104/50
[2017-11-06 08:26] LABS: CREATINE KINASE, TOTAL 41 U/L (26-192)
[2017-11-06] MEDS: REPAGLINIDE 2 MG TABLET PO SCH ×3 (08:50→17:04)
[2017-11-06] MEDS: FUROSEMIDE 40 MG/4 ML VIAL IV SCH ×3 (08:51→17:04)
[2017-11-06] MEDS: METOPROLOL TARTRATE 25 MG TABLET PO SCH ×4 (08:51→17:00)
[2017-11-06 08:58] LABS: FERRITIN 62 ng/mL (8-388)
[2017-11-06] MEDS ORDERED: FERROUS SULFATE (325 MG) 325 MG/TAB TABLET PO SCH (09:00)
[2017-11-06] MEDS ORDERED: ALPRAZOLAM 0.25 MG TABLET PO PRN (09:00)
[2017-11-06] MEDS ORDERED: LORAZEPAM INJ 2 MG/ML VIAL IV PRN (11:30)
[2017-11-06 13:24] LABS: PHOSPHORUS 3.8 mg/dL (2.5-4.9)
[2017-11-06 13:25] LABS: MAGNESIUM 2.2 mg/dL (1.8-2.4)
[2017-11-06 13:50] LABS: TROPONIN I < 0.017 ng/mL (0.00-0.056)
[2017-11-06 16:00] VITALS: BP 103/50
--- NOTE | 2017-11-06 19:30 | NUR ---
MS RN OPENING NOTES: RECEIVED PATIENT SITTING ON CHAIR, AOX3, ON ROOM AIR, BREATHING EVEN AND UNLABORED. APPEARS CALM AND IN NO DISTRESS. DENIES PAIN OR DIFFICULTY BREATHING. BREATH SOUNDS CLEAR AT UPPER LUNG BREWER, DIMINISHED OVER LOWER LUNG AREAS. PIV OVER LFA G 20 INTACT AND PATENT TO FLUSH. PROVIDED FOR COMFORT AND SAFETY. CALL LIGHT WITHIN REACH. DAUGHTER AT BEDSIDE. WILL CONT TO MONITOR.
[2017-11-06 20:00] VITALS: BP 112/54
[2017-11-06] MEDS: ATORVASTATIN 10 MG TABLET PO SCH (21:49)
[2017-11-06] MEDS: ZOLPIDEM TARTRATE 10 MG TABLET PO SCH (21:49)
--- NOTE | 2017-11-06 21:54 | NUR ---
RN NOTES: BLOOD SUGAR CHECKED AT 383 MG/DL. PER FAMILY AT BEDSIDE, SHE WAS GIVEN SOME CANNED PEACHES AND GRAPES AFTER DINNER. EDUCATED THEM RE DIABETIC DIET. ADMINISTERED 10 U REGULAR INSULIN PER SCALE SQ. WILL CONT TO MONITOR.
[2017-11-07] MEDS: BLOOD SUGAR DIAGNOSTIC 1 EACH STRIP IN SCH ×2 (06:32→12:22)
[2017-11-07] MEDS: INSULIN REGULAR, HUMAN 100 UNIT/ML 3 ML VIAL SQ PRN ×2 (06:34→12:24)
[2017-11-07 06:41] LABS: ALANINE AMINOTRANSFERASE 23 U/L (12-78); ALBUMIN 2.8 g/dL (3.4-5.0); ALKALINE PHOSPHATASE 117 U/L (46-116); ASPARTATE AMINOTRANSFERASE 11 U/L (15-37); BILIRUBIN,TOTAL 0.6 mg/dL (0.2-1.0); CALCIUM, SERUM 8.7 mg/dL (8.5-10.1); CARBON DIOXIDE 27 mmol/L (21-32); CHLORIDE 101 mmol/L (98-107); GLUCOSE 303 mg/dL (74-106); MAGNESIUM 2.1 mg/dL (1.8-2.4); PHOSPHORUS 3.4 mg/dL (2.5-4.9); POTASSIUM 4.4 mmol/L (3.5-5.1); SODIUM SERUM 137 mmol/L (136-145); TOTAL PROTEIN, SERUM 7.1 g/dL (6.4-8.2); UREA NITROGEN, BLOOD 75 mg/dL (7-18)
[2017-11-07 06:46] LABS: TROPONIN I < 0.017 ng/mL (0.00-0.056)
--- NOTE | 2017-11-07 06:59 | NUR ---
MS RN CLOSING NOTES: PATIENT IN BED, AOX4, ON ROOM AIR, BREATHING EVEN AND UNLABORED. APPEARS CALM AND IN NO DISTRESS. DENIES PAIN. PIV OVER RFA G20 INTACT AND PATENT TO FLUSH. AM BLOOD SUGAR CHECKED AT 327 MG/DL, ADMINISTERED 8 UNITS REGULAR INSULIN PER SCALE. NO ACUTE CHANGE IN CONDITION NOTED THROUGH SHIFT. DUE MEDS GIVEN. PROVIDED FOR COMFORT AND SAFETY. BED IN LOWEST AND LOCKED POSITION, SIDERAILS UP X 3, CALL LIGHT WITHIN REACH. WILL ENDORSE TO AM RN FOR MONI.
[2017-11-07 07:06] LABS: BASOPHILS % (AUTO) 0.5 % (0.0-2.0); EOSINOPHILS % (AUTO) 2.7 % (0.0-6.0); HEMATOCRIT 24 % (33-45); HEMOGLOBIN 8.1 g/dL (11.5-14.8); LYMPHOCYTES # (AUTO) 1.3 /CMM (0.8-4.8); LYMPHOCYTES % (AUTO) 18.1 % (20.0-44.0); MEAN CORPUSCULAR HGB CONC 33 g/dl (31.0-36.0); MEAN CORPUSCULAR VOLUME 82 fL (82-100); MONOCYTES # (AUTO) 0.8 /CMM (0.1-1.30); MONOCYTES % (AUTO) 10.9 % (2.0-12.0); NEUTROPHILS # (AUTO) 4.8 /CMM (1.8-8.9); NEUTROPHILS % (AUTO) 67.8 % (43.0-81.0); PLATELET COUNT (AUTO) 245 /CMM (150-450); RDW COEFFICIENT OF VARIATION 14.8 (11.5-15.0); RED BLOOD CELL COUNT(AUTO) 2.95 MIL/uL (4.0-5.2); WHITE BLOOD COUNT (AUTO) 7.1 K/uL (4.3-11.0)
[2017-11-07 08:00] VITALS: BP 119/69
--- NOTE | 2017-11-07 08:00 | NUR ---
MS RN OPENING NOTES Patient was seen resting in bed AAOx4, breathing comfortably on RA with no SOB or signs of acute distress. Daughter is with patient at bedside. Patient has right FA IV 20 g SL. Bed is in low/locked position, two side rails up, and call tello within reach. Will continue to monitor.
[2017-11-07 09:00] LABS: CHOLESTEROL 116 mg/dL (<200); HDL CHOLESTEROL 58 mg/dL (40-60); LDL 61 mg/dL (0-99); TRIGLYCERIDES 95 mg/dL (30-150)
[2017-11-07 09:10] VITALS: BP 119/69
[2017-11-07] MEDS: REPAGLINIDE 2 MG TABLET PO SCH ×2 (09:10→12:15)
[2017-11-07] MEDS: METOPROLOL TARTRATE 25 MG TABLET PO SCH (09:10)
--- NOTE | 2017-11-07 10:00 | NUR ---
MS RN NOTE - heart rate reassessment Patient's heart rate this AM was 113 bpm. Heart rate was reassessed after administration of metoprolol and found to be 76 bpm. Will continue to monitor.
[2017-11-07] MEDS ORDERED: METH10TA80 PO (11:25)
[2017-11-07] MEDS ORDERED: LEVO750T21 PO (11:47)
[2017-11-07 12:14] LABS: *SPE A/G RATIO 0.8 (0.7-1.7); *SPE ALBUMIN 2.8 g/dL (2.9-4.4); *SPE ALPHA-1-GLOBULIN 0.4 g/dL (0.0-0.4); *SPE ALPHA-2-GLOBULIN 0.9 g/dL (0.4-1.0); *SPE BETA GLOBULIN 0.9 g/dL (0.7-1.3); *SPE GLOBULIN, TOTAL 3.3 g/dL (2.2-3.9); *SPE M-SPIKE Not Observed g/dL (Not Observed); PTH, INTACT 235 pg/mL (15-65)
--- NOTE | 2017-11-07 14:00 | NUR ---
MS RETAIL RESET MERCHANDISER NOTE Patient has been discharged to home accompanied by her daughter. Instructions to follow-up with Cardiology and PCP within one week were given to patient and daughter; they have opted to schedule those appointments themselves; the patient sees Clinical Athletic Instructor, Dr. Hoyos, in [place]. All discharge education was provided regarding appointments, new prescription meds, disease process/risk factors, diet, and standard discharge teaching (i.e. smoking cessation, MRSA, etc.). Patient and daughter verbalized understanding and signed discharge papers and Patient Belonging form. Peripheral IV was removed just prior to discharge. Patient left in stable condition with vitals WNL. Note: Patient refused discharge pictures to be take (left breast fold and left inner thigh).
== END 2017-11-07 14:00 | disposition home or self-care (01) | DRG 177 ==
LOC: ER 09:03 → TELE 11:21 → MED 11-06 08:59
PROVIDERS: ADMIT Nurse Practitioner Acute Care; ATTEND Nurse Practitioner Acute Care
DX: J69.0 Pneumonitis due to inhalation of food and vomit (principal); N17.0 Acute kidney failure with tubular necrosis; I21.4 Non-ST elevation (NSTEMI) myocardial infarction; I50.23 Acute on chronic systolic (congestive) heart failure; E46 Unspecified protein-calorie malnutrition; E11.22 Type 2 diabetes mellitus with diabetic chronic kidney disease; D68.59 Other primary thrombophilia; I48.2 Chronic atrial fibrillation; J90 Pleural effusion, not elsewhere classified; I13.0 Hypertensive heart and chronic kidney disease with heart failure and stage 1 through stage 4 chronic kidney disease, or unspecified chronic kidney disease; N39.0 Urinary tract infection, site not specified; E83.51 Hypocalcemia; D50.9 Iron deficiency anemia, unspecified; E05.90 Thyrotoxicosis, unspecified without thyrotoxic crisis or storm; N18.9 Chronic kidney disease, unspecified; I11.0 Hypertensive heart disease with heart failure; Z79.4 Long term (current) use of insulin; Z79.899 Other long term (current) drug therapy; Z98.890 Other specified postprocedural states; Z85.3 Personal history of malignant neoplasm of breast; I35.0 Nonrheumatic aortic (valve) stenosis; I25.2 Old myocardial infarction
CPT/HCPCS: 36415; 71045-TC; 76770-TC; 80048-TC; 80053-TC; 80061-TC; 80076-TC; 81000-TC; 82306; 82550-TC; 82570-TC; 82728-TC; 82962-TC; 83540-TC; 83735-TC; 83880; 83970; 84100-TC; 84155; 84155-TC; 84165; 84300-TC; 84439-TC; 84443-TC; 84484-TC; 85025-TC; 85730-TC; 86850-TC; 87081-TC; 87086-TC; A4216; A4606; J1815; J1940; J1956; J7040; Z7610

== ENCOUNTER 2018-01-11 07:04 | Inpatient (IN) | payer MEDICARE, MEDICAID ==
[~2018-01-11] VITALS: Ht 152.4 cm; Wt 103.9 kg
[2018-01-11] VITALS (7 sets, daily range): BP systolic 99–117; BP diastolic 37–55
[~2018-01-11 07:04] MED LIST changes: -FURO40SO2 PO; +FURO40TA5 PO; -INSU3INS9 SQ; +LEVO750T21 PO; +METH10TA80 PO; +METO5TAB7 PO
--- NOTE | 2018-01-11 07:10 | NUR ---
[id number] FROM HOME: SOB, WEAKNESS x 3 DAYS. WORSE TODAY. A/OX 3, BREATHING EVEN AND UNLABORED. NO SOB, NAD, VITALS STABLE. SAFETY AND COMFORT MEASURES IN PLACE. AWAITING MD ORDERS.
[2018-01-11] MEDS ORDERED: IPRATROPIUM NEB FS 0.5 MG/2.5 ML AMPUL.NEB ONE (07:19)
[2018-01-11] MEDS ORDERED: ALBUTEROL FS 2.5 MG/3 ML VIAL.NEB ONE (07:19)
--- NOTE | 2018-01-11 07:20 | NUR ---
NEW IV STARTED ON RAC, 20G. BLOOD DRAWN AND SENT TO LAB.
--- NOTE | 2018-01-11 07:25 | NUR ---
RT AT BEDSIDE FOR BREATHING TX.
[2018-01-11] MEDS ORDERED: IPRATROPIUM NEB FS 0.5 MG/2.5 ML AMPUL.NEB NEB ONE (07:30)
[2018-01-11] MEDS ORDERED: ALBUTEROL FS 2.5 MG/3 ML VIAL.NEB CONTNEB ONE (07:30)
[2018-01-11 07:32] LABS: BASOPHILS # (AUTO) 0.1 /CMM (0.0-0.2); BASOPHILS % (AUTO) 0.9 % (0.0-2.0); EOSINOPHILS % (AUTO) 2.3 % (0.0-6.0); HEMATOCRIT 23 % (33-45); HEMOGLOBIN 7.3 g/dL (11.5-14.8); LYMPHOCYTES # (AUTO) 1.5 /CMM (0.8-4.8); LYMPHOCYTES % (AUTO) 21.3 % (20.0-44.0); MEAN CORPUSCULAR HEMOGLOBIN 26 PG (26.0-33.0); MEAN CORPUSCULAR HGB CONC 31 g/dl (31.0-36.0); MEAN CORPUSCULAR VOLUME 82 fL (82-100); MONOCYTES # (AUTO) 0.8 /CMM (0.1-1.30); MONOCYTES % (AUTO) 11.2 % (2.0-12.0); NEUTROPHILS # (AUTO) 4.6 /CMM (1.8-8.9); NEUTROPHILS % (AUTO) 64.3 % (43.0-81.0); PLATELET COUNT (AUTO) 281 /CMM (150-450); RDW COEFFICIENT OF VARIATION 18.6 (11.5-15.0); RED BLOOD CELL COUNT(AUTO) 2.81 MIL/uL (4.0-5.2); WHITE BLOOD COUNT (AUTO) 7.1 K/uL (4.3-11.0)
[2018-01-11 07:46] LABS: CALCIUM, SERUM 8.1 mg/dL (8.5-10.1); CARBON DIOXIDE 31 mmol/L (21-32); CHLORIDE 95 mmol/L (98-107); CREATININE 2.1 mg/dL (0.6-1.3); GLUCOSE 269 mg/dL (74-106); POTASSIUM 3.4 mmol/L (3.5-5.1); SODIUM SERUM 135 mmol/L (136-145); UREA NITROGEN, BLOOD 71 mg/dL (7-18)
[2018-01-11 07:52] LABS: INR 1.02 (0.87-1.13); TROPONIN I 0.062 ng/mL (0.00-0.056)
[2018-01-11 07:59] LABS: ALANINE AMINOTRANSFERASE 15 U/L (12-78); ALBUMIN 2.8 g/dL (3.4-5.0); ALKALINE PHOSPHATASE 89 U/L (46-116); ASPARTATE AMINOTRANSFERASE 16 U/L (15-37); B-TYPE NATRIURETIC PEPTIDE 6069 PG/ML (0-125); BILIRUBIN,DIRECT 0.1 mg/dL (0.0-0.2); BILIRUBIN,TOTAL 0.3 mg/dL (0.2-1.0); TOTAL PROTEIN, SERUM 6.8 g/dL (6.4-8.2)
[2018-01-11] MEDS ORDERED: FUROSEMIDE 20 MG/2 ML VIAL IV ONE (08:00)
[2018-01-11] MEDS ORDERED: ASPIRIN 325 MG TABLET PO ONE (08:00)
[2018-01-11] MEDS ORDERED: ASPIRIN 325 MG TABLET ONE (08:19)
[2018-01-11] MEDS ORDERED: FUROSEMIDE 20 MG/2 ML VIAL ONE (08:19)
--- NOTE | 2018-01-11 08:38 | NUR ---
2ND PAGE TO DR. BROWN FOR ADMISSION
--- NOTE | 2018-01-11 08:57 | NUR ---
REPORT GIVEN TO ZEV ARREOLA FOR MONI UPON ADMISSION.
[2018-01-11] MEDS ORDERED: SERT25TA PO (08:58)
[2018-01-11] MEDS ORDERED: INSU100V7 SQ (08:59)
[2018-01-11] MEDS ORDERED: BLOO-668 IN (08:59)
[2018-01-11] MEDS ORDERED: INSU100V3 SQ (08:59)
--- NOTE | 2018-01-11 09:10 | NUR ---
3RD PAGE TO DR. BROWN FOR ADMISSION.
--- NOTE | 2018-01-11 09:46 | NUR ---
PATIENT TRANSPORTED TO [facility] VIA ACLS PROTOCOL. RNELBA TO PROVIDE MONI.
--- NOTE | 2018-01-11 10:10 | NUR ---
RN NOTE RECEIVED PT ON BED WITH DAUGHTER AT BEDSIDE, AOX3, ON TELEMONITOR AFIB 82, R AC 20 G IV INTACT, ON ROOM AIR, DENIES ANY PAIN, NO SOB, EDEMA ON FEET AND ANKLE NOTED, WILL WAIT FOR MD FOR ADMITTING ORDERS.
[2018-01-11] MEDS ORDERED: ZOLPIDEM TARTRATE 5 MG TABLET PO PRN (10:30)
[2018-01-11] MEDS ORDERED: ALBUTEROL FS 2.5 MG/3 ML VIAL.NEB NEB PRN (10:30)
[2018-01-11] MEDS ORDERED: MAGNESIUM HYDROXIDE 30 ML UDC PO PRN (10:30)
[2018-01-11] MEDS ORDERED: MAG HYDROX/AL HYDROX/SIMETH 30 ML UDC PO PRN (10:30)
[2018-01-11] MEDS ORDERED: DEXTROSE 50%-WATER 50 ML DISP.SYRIN IV PRN (10:30)
[2018-01-11] MEDS ORDERED: ACETAMINOPHEN 325 MG TABLET PO PRN (10:30)
[2018-01-11] MEDS ORDERED: ENOXAPARIN SODIUM 40 MG/0.4 ML DISP.SYRIN SQ SCH (10:30)
[2018-01-11] MEDS ORDERED: ONDANSETRON HCL/PF 4 MG/2 ML VIAL IVP PRN (10:30)
[2018-01-11] MEDS ORDERED: Z GUARD REMEDY 2 OZ OINT TP PRN (10:30)
[2018-01-11] MEDS ORDERED: HYDROCODONE/APAP 5/325MG 1 EACH TABLET PO PRN (10:30)
[2018-01-11] MEDS ORDERED: IPRATROPIUM NEB FS 0.5 MG/2.5 ML AMPUL.NEB NEB PRN (10:30)
[2018-01-11] MEDS: METOLAZONE 2.5 MG TABLET PO SCH (11:17)
[2018-01-11] MEDS: ENOXAPARIN SODIUM 30 MG/0.3 ML DISP.SYRIN SQ SCH (11:30)
[2018-01-11] MEDS ORDERED: POTASSIUM CHLORIDE 10 MEQ TABLET.SA PO ONE (11:30)
[2018-01-11] MEDS: BLOOD SUGAR DIAGNOSTIC 1 EACH STRIP IN SCH ×3 (12:23→21:26)
[2018-01-11] MEDS: INSULIN REGULAR, HUMAN 100 UNIT/ML 3 ML VIAL SQ PRN ×3 (12:25→21:24)
[2018-01-11] MEDS: FUROSEMIDE 40 MG/4 ML VIAL IV SCH ×2 (12:50→17:30)
--- NOTE | 2018-01-11 19:30 | NUR ---
TELE/RN NOTES: RECEIVED PT. IN CHAIR W/ DAUGHTER AT BEDSIDE. A/O X 4. UGANDAN SPEAKING W/ LITTLE BIT OF ICELANDIC. DENIES ANY C/O CHEST PAIN OR DISCOMFORT AT THIS TIME. ON TELE MONITOR W/ AFIB 58 CONTROLLED. W/ RAC G 20 SL PATENT AND INTACT W/ NO S/S OF INFECTION/INFILTRATION NOTED. CONTINENT OF B/B. ABLE TO AMBULATE W/ ASSIST TO THE BATHROOM. CALL LIGHT W/ REACH. WILL CONTINUE TO MONITOR.
[2018-01-11] MEDS ORDERED: ATORVASTATIN 10 MG TABLET PO SCH (22:00)
[2018-01-11] MEDS ORDERED: INSULIN GLARGINE, 100 UNIT/ML CARTRIDGE SQ SCH (22:00)
--- NOTE | 2018-01-11 22:00 | NUR ---
RN/TELE NOTES: PT. REQUEST XANAX FOR BEDTIME. CALLED DR. GAVIN Yu/ ORDERS NOTED AND CARRIED OUT.
[2018-01-11] MEDS ORDERED: ALPRAZOLAM 0.25 MG TABLET PO PRN (22:30)
[2018-01-12] VITALS: BP 133/65
[2018-01-12 04:00] VITALS: BP 90/54
[2018-01-12] MEDS ORDERED: PANTOPRAZOLE 40 MG TABLET.DR PO SCH (07:30)
--- NOTE | 2018-01-12 07:30 | NUR ---
TELE/RN NOTES: NO ACUTE CHANGES NOTED DURING THIS SHIFT. REPORT GIVEN TO AM NURSE FOR MONI.
--- NOTE | 2018-01-12 07:35 | NUR ---
TROPHY ASSEMBLER NOTES RECEIVED PATIENT SITTING IN CHAIR, AOX3, CITIZEN OF [place] SPEAKING, ON ROOM AIR 97% SATURATING NO SIGNS OF DISTRESS, NO SHORTNESS OF BREATH, ON TELE MONITORING AFIB 92, AMBULATORY WITH ASSISTANCE, IV RAC 20G, CLEAN AND PATENT, BED IN LOW AND LOCKED POSITION CALL LIGHT WITHIN REACH, FAMILY AT BEDSIDE WILL CONTINUE TO MONITOR.
[2018-01-12] MEDS: BLOOD SUGAR DIAGNOSTIC 1 EACH STRIP IN SCH ×2 (07:39→11:24)
[2018-01-12] MEDS: INSULIN REGULAR, HUMAN 100 UNIT/ML 3 ML VIAL SQ PRN ×2 (07:42→11:40)
[2018-01-12 08:00] VITALS: BP 91/42
[2018-01-12 08:06] LABS: IMMUNOGLOBULIN A, SERUM 186 mg/dL (64-422); IMMUNOGLOBULIN G, SERUM 1006 mg/dL (700-1600); IMMUNOGLOBULIN M, SERUM 41 mg/dL (26-217)
[2018-01-12 08:39] LABS: BASOPHILS % (AUTO) 0.3 % (0.0-2.0); EOSINOPHILS % (AUTO) 1.9 % (0.0-6.0); HEMATOCRIT 26 % (33-45); HEMOGLOBIN 8.1 g/dL (11.5-14.8); LYMPHOCYTES # (AUTO) 1.2 /CMM (0.8-4.8); LYMPHOCYTES % (AUTO) 15.4 % (20.0-44.0); MEAN CORPUSCULAR HEMOGLOBIN 26 PG (26.0-33.0); MEAN CORPUSCULAR HGB CONC 31 g/dl (31.0-36.0); MEAN CORPUSCULAR VOLUME 83 fL (82-100); MONOCYTES # (AUTO) 0.8 /CMM (0.1-1.30); MONOCYTES % (AUTO) 10.2 % (2.0-12.0); NEUTROPHILS # (AUTO) 5.5 /CMM (1.8-8.9); NEUTROPHILS % (AUTO) 72.2 % (43.0-81.0); PLATELET COUNT (AUTO) 298 /CMM (150-450); RDW COEFFICIENT OF VARIATION 18.7 (11.5-15.0); RED BLOOD CELL COUNT(AUTO) 3.18 MIL/uL (4.0-5.2); WHITE BLOOD COUNT (AUTO) 7.7 K/uL (4.3-11.0)
[2018-01-12 08:47] LABS: CALCIUM, SERUM 8.4 mg/dL (8.5-10.1); CARBON DIOXIDE 34 mmol/L (21-32); CHLORIDE 94 mmol/L (98-107); GLUCOSE 250 mg/dL (74-106); PHOSPHORUS 3.1 mg/dL (2.5-4.9); POTASSIUM 2.9 mmol/L (3.5-5.1); SODIUM SERUM 134 mmol/L (136-145); UREA NITROGEN, BLOOD 67 mg/dL (7-18)
[2018-01-12 08:49] LABS: CHOLESTEROL 103 mg/dL (<200); HDL CHOLESTEROL 37 mg/dL (40-60); LDL 52 mg/dL (0-99); TRIGLYCERIDES 123 mg/dL (30-150)
[2018-01-12] MEDS: METOLAZONE 2.5 MG TABLET PO SCH (09:00)
[2018-01-12] MEDS: ENOXAPARIN SODIUM 30 MG/0.3 ML DISP.SYRIN SQ SCH (09:00)
[2018-01-12] MEDS: FUROSEMIDE 40 MG/4 ML VIAL IV SCH (09:00)
[2018-01-12] MEDS ORDERED: FERROUS SULFATE (325 MG) 325 MG/TAB TABLET PO SCH (09:00)
[2018-01-12] MEDS ORDERED: FUROSEMIDE 40 MG TABLET PO SCH (09:00)
[2018-01-12] MEDS ORDERED: ASPIRIN 81 MG TAB.CHEW PO SCH (09:00)
[2018-01-12] MEDS ORDERED: SERTRALINE HCL 25 MG TABLET PO SCH (09:00)
[2018-01-12] MEDS ORDERED: POTASSIUM CHLORIDE 10 MEQ TABLET.SA PO ONE (10:00)
[2018-01-12] MEDS: POTASSIUM CHLORIDE 20 MEQ TAB.PRT.SR PO SCH ×2 (11:25→12:41)
[2018-01-12 12:00] VITALS: BP 131/63
--- NOTE | 2018-01-12 12:50 | NUR ---
RIVETER PORTABLE MACHINE NOTES PATIENT AND DAUGHTER STATED THEY WANTED TO BE DISCHARGED, PER DR KEVIN PLASCENCIA THE PATIENT IS NOT YET STABLE FOR DISCHARGE. TEACHING DONE FOR REASONS WHY PATIENT SHOULD NOT LEAVE HOSPITAL AT THIS TIME AND RISK FOR READMITTANCE. PATIENT AND DAUGHTER VERBALIZED UNDERSTANDING, MD NOTIFIED OF AMA DECISION, ALL EXIT CARE AND TEACHING DONE. AMA FORM SIGNED, BELONGINGS LIST SIGNED, NO WOUNDS PRESENT, ALL QUESTIONS ANSWERED, POTASSIUM REPLACED BEFORE PATIENT LEFT.
[2018-01-13 08:07] LABS: *SPE ALBUMIN 2.8 g/dL (2.9-4.4); *SPE ALPHA-1-GLOBULIN 0.3 g/dL (0.0-0.4); *SPE ALPHA-2-GLOBULIN 0.7 g/dL (0.4-1.0); *SPE BETA GLOBULIN 0.9 g/dL (0.7-1.3); *SPE GLOBULIN, TOTAL 2.7 g/dL (2.2-3.9); *SPE M-SPIKE Not Observed g/dL (Not Observed); *SPEGAMMA GLOBULIN 0.8 g/dL (0.4-1.8)
[2018-01-14 08:09] LABS: CANCER AG, 15-3 34.9 U/mL (0.0-25.0)
== END 2018-01-12 13:00 | disposition left against medical advice (07) | DRG 291 ==
LOC: ER 07:06 → TELE1 08:46
PROC: 30233N1 Transfusion of Nonautologous Red Blood Cells into Peripheral Vein, Percutaneous Approach (ICD-10-PCS; principal; 2018-01-11)
DX: I11.0 Hypertensive heart disease with heart failure (principal); J96.01 Acute respiratory failure with hypoxia; K76.7 Hepatorenal syndrome; N18.4 Chronic kidney disease, stage 4 (severe); I13.0 Hypertensive heart and chronic kidney disease with heart failure and stage 1 through stage 4 chronic kidney disease, or unspecified chronic kidney disease; E10.22 Type 1 diabetes mellitus with diabetic chronic kidney disease; I25.10 Atherosclerotic heart disease of native coronary artery without angina pectoris; Z85.3 Personal history of malignant neoplasm of breast; Z79.899 Other long term (current) drug therapy; D64.9 Anemia, unspecified; I50.33 Acute on chronic diastolic (congestive) heart failure; I48.2 Chronic atrial fibrillation; I35.0 Nonrheumatic aortic (valve) stenosis; Z79.4 Long term (current) use of insulin; I70.0 Atherosclerosis of aorta; E61.1 Iron deficiency
CPT/HCPCS: 36415; 71045-TC; 80048-TC; 80061-TC; 80076-TC; 82378; 82728-TC; 82746; 82784; 82962-TC; 83540-TC; 83605-TC; 83735-TC; 83880; 84100-TC; 84155; 84165; 84439-TC; 84443-TC; 84484-TC; 85025-TC; 85730-TC; 86300; 86334; 86850-TC; 86921-TC; 87040-TC; 87081-TC; 93307-TC; A4606; J1815; J1940; J7030; P9016-BL; Z7610

== ENCOUNTER 2018-12-09 11:54 | Inpatient (IN) | payer MEDICARE, OTHER ==
[~2018-12-09] VITALS: Ht 152.4 cm; Wt 106.6 kg
[~2018-12-09 11:54] MED LIST changes: -ALPR0.255 PO; +BLOO-668 IN; +INSU100V3 SQ; +INSU100V7 SQ; -LEVO750T21 PO; -LISI-607 PO; -METH10TA80 PO; -METO25TA6 PO; -REPA2TAB9 PO; +SERT25TA PO; -ZOLP10TA6 PO
[2018-12-09] MEDS ORDERED: ASPIRIN 325 MG TABLET PO ONE (12:00)
[2018-12-09] MEDS ORDERED: ASPIRIN 325 MG TABLET ONE (12:03)
--- NOTE | 2018-12-09 12:05 | NUR ---
[id number], FROM HOME, C/O SOB SINCE THIS MORNING, 97% ON ROOM AIR. PT ALGERIAN SPEAKING, JEFF, EMT ASSISTED W/ TRANSLATION. AAOX3, VSS. PT ALSO C/O CHEST PRESSURE 4/10, EDEMA ON FRANCESCO LOWER LEGS, DR. STANFORD AWARE. DENIES DIZZINESS, N/V, ARM/JAW PAIN AT THIS TIME. PLACED ON TAX INVESTIGATOR, AFIB. WILL CONT TO MONITOR.
[2018-12-09 12:19] LABS: BASOPHILS # (AUTO) 0.1 /CMM (0.0-0.2); HEMATOCRIT 24 % (33-45); HEMOGLOBIN 7.4 g/dL (11.5-14.8); LYMPHOCYTES # (AUTO) 0.9 /CMM (0.8-4.8); LYMPHOCYTES % (AUTO) 13.1 % (20.0-44.0); MEAN CORPUSCULAR HGB CONC 31 g/dl (31.0-36.0); MEAN CORPUSCULAR VOLUME 83 fL (82-100); MONOCYTES # (AUTO) 0.7 /CMM (0.1-1.30); MONOCYTES % (AUTO) 10.6 % (2.0-12.0); NEUTROPHILS # (AUTO) 4.9 /CMM (1.8-8.9); NEUTROPHILS % (AUTO) 72.3 % (43.0-81.0); PLATELET COUNT (AUTO) 316 /CMM (150-450); RED BLOOD CELL COUNT(AUTO) 2.82 MIL/uL (4.0-5.2); WHITE BLOOD COUNT (AUTO) 6.8 K/uL (4.3-11.0)
[2018-12-09 12:39] LABS: ALANINE AMINOTRANSFERASE 21 U/L (12-78); ALBUMIN 2.8 g/dL (3.4-5.0); ALKALINE PHOSPHATASE 127 U/L (46-116); ASPARTATE AMINOTRANSFERASE 14 U/L (15-37); B-TYPE NATRIURETIC PEPTIDE 5530 PG/ML (0-125); BILIRUBIN,DIRECT 0.1 mg/dL (0.0-0.2); BILIRUBIN,TOTAL 0.3 mg/dL (0.2-1.0); CALCIUM, SERUM 8.4 mg/dL (8.5-10.1); CARBON DIOXIDE 35 mmol/L (21-32); CHLORIDE 99 mmol/L (98-107); GLUCOSE 209 mg/dL (74-106); POTASSIUM 3.6 mmol/L (3.5-5.1); SODIUM SERUM 139 mmol/L (136-145); TOTAL PROTEIN, SERUM 6.7 g/dL (6.4-8.2)
[2018-12-09 12:40] LABS: UREA NITROGEN, BLOOD 85 mg/dL (7-18)
[2018-12-09] MEDS ORDERED: FUROSEMIDE 40 MG/4 ML VIAL IV ONE (13:00)
[2018-12-09] MEDS ORDERED: FUROSEMIDE 40 MG/4 ML VIAL ONE (13:05)
[2018-12-09] MEDS ORDERED: CARV3.122 PO (13:09)
[2018-12-09] MEDS ORDERED: ZOLP10TA6 PO (13:09)
[2018-12-09] MEDS ORDERED: POTA10TA15 PO (13:09)
[2018-12-09] MEDS ORDERED: PANT40TA2 PO (13:09)
--- NOTE | 2018-12-09 13:15 | NUR ---
MEDICATED W/ LASIX IVP, PT ANH WELL. PLACED PT ON COMMODE.
--- NOTE | 2018-12-09 13:55 | NUR ---
324-1 TELE [facility] RADHA
--- NOTE | 2018-12-09 14:25 | NUR ---
PT SITTING UP, RR EVEN & UNLABORED. DENIES CP, SOB, DIZZINESS, N/V AT THIS TIME. WILL CONT TO MONITOR. FANTASMA AT BS.
--- NOTE | 2018-12-09 14:59 | NUR ---
REPORT GIVEN TO ZEV LAU FOR CONT OF CARE.
[2018-12-09 16:00] VITALS: BP 130/58
--- NOTE | 2018-12-09 16:00 | NUR ---
MS Luis RECEIVED A NEW ADMISSION,83 YEAR OLD FEMALE, ALERT,ORIENTED X3,THAI SPEAKING, NOT IN ANY FORM OF DISTRESS, CAME IN W/ DX OF CHF,DENIES PAIN AT THIS TIME, WILL MONITOR PATIENT'S CONDITION.
[2018-12-09] MEDS ORDERED: ONDANSETRON HCL/PF 4 MG/2 ML VIAL IVP PRN (16:30)
[2018-12-09] MEDS ORDERED: MAGNESIUM HYDROXIDE 30 ML UDC PO PRN (16:30)
[2018-12-09] MEDS ORDERED: HYDROCODONE/APAP 5/325MG 1 EACH TABLET PO PRN (16:30)
[2018-12-09] MEDS ORDERED: Z GUARD REMEDY 2 OZ OINT TP PRN (16:30)
[2018-12-09] MEDS ORDERED: ZOLPIDEM TARTRATE 5 MG TABLET PO PRN (16:30)
[2018-12-09] MEDS ORDERED: MAG HYDROX/AL HYDROX/SIMETH 30 ML UDC PO PRN (16:30)
[2018-12-09] MEDS ORDERED: ACETAMINOPHEN 325 MG TABLET PO PRN (16:30)
--- NOTE | 2018-12-09 17:30 | NUR ---
MS RN DUE MEDS GIVEN. TOLERATED WELL.
[2018-12-09] MEDS: BUMETANIDE INJ 0.25 MG/ML VIAL IV SCH (17:31)
[2018-12-09] MEDS ORDERED: ZOLPIDEM TARTRATE 10 MG TABLET PO PRN (18:30)
--- NOTE | 2018-12-09 18:41 | NUR ---
MS GLUELINE WORKER AT BED TIME, MONITORED ACCORDINGLY.
[2018-12-09] MEDS: INSULIN REGULAR, HUMAN 100 UNIT/ML 3 ML VIAL SQ SCH (18:58)
--- NOTE | 2018-12-09 19:45 | NUR ---
RN OPENING NOTES RECEIVED REPORT FROM DAYSHIFT ZEV LAU. FOUND Pt RESTING IN BED. NO S/S OF ACUTE DISTRESS OR SOB NOTED. RESPIRATIONS EVEN AND UNLABORED. Pt IS A/OX4, ARABIC SPEAKING ONLY. DAUGHTER WILL STAY OVERNIGHT TO HELP TRANSLATE FOR Pt. Pt ON TELE MONITOR. TELE READING CONTROLLED AFIB 80s. IV ACCESS ON RAC #20G. SAFETY MEASURES IN PLACE. BED LOW, LOCKED, HOB ELEVATED, SIDE RAILS UP, CALL LIGHT & BEDSIDE TABLE WITHIN REACH. WILL CONTINUE TO MONITOR Pt's CONDITION AND SAFETY THROUGHOUT THE NIGHT.
[2018-12-09 20:00] VITALS: BP 100/51
[2018-12-09] MEDS ORDERED: ALPR0.5T PO ×2 (21:25)
[2018-12-09] MEDS ORDERED: INSULIN GLARGINE, 100 UNIT/ML CARTRIDGE SQ SCH (22:00)
[2018-12-09] MEDS ORDERED: ATORVASTATIN 10 MG TABLET PO SCH (22:00)
--- NOTE | 2018-12-09 22:00 | NUR ---
RN NOTES SPOKE WITH ANDRA ON THE FLOOR. INFORMED ANDRA THAT Pt FORGOT TO MENTION PART OF MED RECON LIST THAT SHE TAKES XANAX 0.5MG PO DAILY @[facility], AND WAS REQUESTING TO CONTINUE IT HERE AT THE HOSPITAL. PER ANDRA ORDERS, SAID IT IS OK TO CONTINUE Pt's XANAX 0.5MG HERE AT [facility]. WILL CARRY OUT ORDER.
[2018-12-09] MEDS: BLOOD SUGAR DIAGNOSTIC 1 EACH STRIP IN SCH (22:09)
--- NOTE | 2018-12-09 22:28 | NUR ---
RN notes HS ACCUCHECK BG 171. ADMINISTERED SCHEDULED LANTUS 44UN. SNACKS PROVIDED AT BEDSIDE.
[2018-12-09] MEDS ORDERED: ALPRAZOLAM 0.25 MG TABLET PO SCH (23:00)
[2018-12-10] VITALS (11 sets, daily range): BP systolic 107–122; BP diastolic 49–77
--- NOTE | 2018-12-10 06:45 | NUR ---
RN NOTES AC ACCUCHECK BG 116. NO INSULIN COVERAGE NEEDED AT THIS TIME
--- NOTE | 2018-12-10 06:56 | NUR ---
RN CLOSING NOTES NO SIGNIFICANT CHANGES IN Pt's CONDITION. Pt REMAINS STABLE AT THIS TIME. NO S/S OF ACUTE DISTRESS OR SEVERE SOB NOTED DURING THE SHIFT. Pt IS RESTING COMFORTABLY IN BED. RESPIRATIONS EVEN AND UNLABORED. ALL NEEDS MET AND ATTENDED TO. SAFETY MEASURES IN PLACE. TELE READING CONTROLLED AFIB 80s. WILL ENDORSE TO DAYSHIFT RN FOR Pt's MONI. Addendum: 12/10/18 at 0657 by ROZ QUINTERO RN Pt's DAUGHTER IS AT BEDSIDE
[2018-12-10] MEDS: BLOOD SUGAR DIAGNOSTIC 1 EACH STRIP IN SCH ×3 (07:04→16:31)
[2018-12-10 07:26] LABS: SODIUM SERUM 140 mmol/L (136-145)
[2018-12-10 07:27] LABS: ALANINE AMINOTRANSFERASE 15 U/L (12-78); ALBUMIN 2.6 g/dL (3.4-5.0); ALKALINE PHOSPHATASE 110 U/L (46-116); ASPARTATE AMINOTRANSFERASE 10 U/L (15-37); B-TYPE NATRIURETIC PEPTIDE 5379 PG/ML (0-125); BILIRUBIN,TOTAL 0.3 mg/dL (0.2-1.0)
[2018-12-10 07:28] LABS: CALCIUM, SERUM 8.4 mg/dL (8.5-10.1); CARBON DIOXIDE 35 mmol/L (21-32); CHLORIDE 99 mmol/L (98-107); GLUCOSE 122 mg/dL (74-106); POTASSIUM 3.2 mmol/L (3.5-5.1); TOTAL PROTEIN, SERUM 6.1 g/dL (6.4-8.2); UREA NITROGEN, BLOOD 88 mg/dL (7-18)
[2018-12-10 07:29] LABS: PHOSPHORUS 3.8 mg/dL (2.5-4.9)
[2018-12-10] MEDS ORDERED: PANTOPRAZOLE 40 MG TABLET.DR PO SCH (07:30)
[2018-12-10 07:35] LABS: CHOLESTEROL 81 mg/dL (<200); HDL CHOLESTEROL 34 mg/dL (40-60); LDL 41 mg/dL (0-99); THYROID STIMULATING HORMONE 1.212 uIU/mL (0.358-3.74); TRIGLYCERIDES 114 mg/dL (30-150)
[2018-12-10 07:53] LABS: HEMATOCRIT 22 % (33-45); MEAN CORPUSCULAR HGB CONC 32 g/dl (31.0-36.0); MEAN CORPUSCULAR VOLUME 82 fL (82-100); PLATELET COUNT (AUTO) 302 /CMM (150-450); RED BLOOD CELL COUNT(AUTO) 2.66 MIL/uL (4.0-5.2); WHITE BLOOD COUNT (AUTO) 6.5 K/uL (4.3-11.0)
[2018-12-10 07:54] LABS: BASOPHILS # (AUTO) 0.1 /CMM (0.0-0.2); BASOPHILS % (AUTO) 0.9 % (0.0-2.0); EOSINOPHILS % (AUTO) 4.2 % (0.0-6.0); LYMPHOCYTES # (AUTO) 1.3 /CMM (0.8-4.8); LYMPHOCYTES % (AUTO) 19.2 % (20.0-44.0); MONOCYTES # (AUTO) 0.8 /CMM (0.1-1.30); MONOCYTES % (AUTO) 12.7 % (2.0-12.0); NEUTROPHILS # (AUTO) 4.1 /CMM (1.8-8.9)
[2018-12-10 07:57] LABS: HEMOGLOBIN 6.9 g/dL (11.5-14.8)
--- NOTE | 2018-12-10 08:00 | NUR ---
RN NOTES RECEIVED PATIENT IN THE BED A/O X4, FEMALE MONGOLIAN SPEAKER, NO ACUTE RESPIRATORY DISTRESS. HEAD WAS ELEVATED 35 DEGREE, NO SOB. PATIENT REFUSED PAIN AT THIS TIME, HAS EDEMA BLE. AND LEFT ARM. KEEP LEGS ELEVATED FOR EDEMA PREVENTION USING PILLOWS. ADMINISTERED SCHEDULED MEDICATION, V/S STABLE. IV ACCESS ON RIGHT AC AREA INTACT, PATIENT USING BED SIDE COMMODE. CALL LIGHT WITHIN TO REACH, SAFETY PRECAUTION MAINTAINED ALL THE TIME. DAUGHTER NEXT TO THE BED.
[2018-12-10] MEDS ORDERED: SERTRALINE HCL 25 MG TABLET PO SCH (09:00)
[2018-12-10] MEDS ORDERED: METOLAZONE 2.5 MG TABLET PO SCH (09:00)
[2018-12-10] MEDS ORDERED: FERROUS SULFATE (325 MG) 325 MG/TAB TABLET PO SCH (09:00)
[2018-12-10] MEDS: CARVEDILOL 3.125 MG TABLET PO SCH ×2 (09:00→16:25)
[2018-12-10] MEDS ORDERED: POTASSIUM CHLORIDE 10 MEQ TABLET.SA PO SCH (09:00)
[2018-12-10] MEDS: BUMETANIDE INJ 0.25 MG/ML VIAL IV SCH (09:38)
[2018-12-10] MEDS: INSULIN REGULAR, HUMAN 100 UNIT/ML 3 ML VIAL SQ SCH ×2 (09:47→16:33)
[2018-12-10 10:29] LABS: BAND % (MANUAL) 2 % (0.0-5.0); EOSINOPHILS % (MANUAL) 5 % (0-4); LYMPHOCYTES % (MANUAL) 19 % (16-48); MONOCYTES % (MANUAL) 10 % (0-11.0); NEUTROPHILS % (MANUAL) 64 (42-76)
[2018-12-10] MEDS ORDERED: POTASSIUM CHLORIDE 10 MEQ TABLET.SA PO ONE (11:00)
--- NOTE | 2018-12-10 11:25 | NUR ---
RN NOTES STARTED BLOOD TRANSFUSION AT THIS TIME ON RIGHT AC AREA INTACT. PATIENT A/O X4, STABLE. V/S TAKEN BP -108/55, P-97, R-18, , P-97, O2-100 ROOM AIR, T-98.0. PATIENT REFUSED PAIN, NO ITCHING. CALL LIGHT WITHIN TO REACH, SAFETY PRECAUTION MAINTAINED ALL THE TIME. DAUGHTER NEXT TO THE BED. CONTINUED MONITORING.
--- NOTE | 2018-12-10 11:40 | NUR ---
RN NOTES PATIENT RESTING IN THE BED RESTING STABLE A/O X4 , REFUSED SOB, NO COMPLAINING OF PAIN. TOLERATING BLOOD TRANSFUSION WELL, CALL LIGHT WITHIN TO REACH. CONTINUED MONITORING.
--- NOTE | 2018-12-10 11:40 | NUR ---
RN NOTES V/S TAKEN T- 97.8, P-91, R-18, O2-94 ROOM AIR, BP 107/ 64. CONTINUED MONITORING.
--- NOTE | 2018-12-10 12:00 | NUR ---
ZEV GEORGE PATIENT STABLE V/S TAKEN BP 114/58, P-91, R-18, O2-94 ROOM AIR, T-97.5. PATIENT TOLERATING BLOOD INFUSION WELL. ASSIST PATIENT TO USE BED SIDE COMMODE,. PATIENT FREE OF S/S . CALL LIGHT WITHIN TO REACH, CONTINUED MONITORING.
--- NOTE | 2018-12-10 12:56 | NUR ---
RN NOTES PATIENT STABLE, BS-131 MG/DL, PATIENT STABLE , NO SOB, NO COMPLAINING OF PAIN. V/S STABLE, BP 115/49, P-91, T-97.7, R-18, CONTINUED MONITORING.
--- NOTE | 2018-12-10 14:40 | NUR ---
rn notes finished one units of blood transfusion at this time, patient stable, no complaining of pain, no sob at this time. patient resting in the bed. v/s taken stable, bp-109/54, p-93, r-18, T-97.7, o2-95 room air. continued monitoring.
[2018-12-10 17:19] LABS: BASOPHILS # (AUTO) 0.1 /CMM (0.0-0.2); BASOPHILS % (AUTO) 0.9 % (0.0-2.0); EOSINOPHILS % (AUTO) 2.5 % (0.0-6.0); HEMATOCRIT 25 % (33-45); HEMOGLOBIN 7.9 g/dL (11.5-14.8); LYMPHOCYTES # (AUTO) 1.2 /CMM (0.8-4.8); LYMPHOCYTES % (AUTO) 14.8 % (20.0-44.0); MEAN CORPUSCULAR HGB CONC 32 g/dl (31.0-36.0); MEAN CORPUSCULAR VOLUME 83 fL (82-100); MONOCYTES % (AUTO) 12.9 % (2.0-12.0); NEUTROPHILS # (AUTO) 5.6 /CMM (1.8-8.9); NEUTROPHILS % (AUTO) 68.9 % (43.0-81.0); PLATELET COUNT (AUTO) 309 /CMM (150-450); RED BLOOD CELL COUNT(AUTO) 2.97 MIL/uL (4.0-5.2); WHITE BLOOD COUNT (AUTO) 8.1 K/uL (4.3-11.0)
--- NOTE | 2018-12-10 18:30 | NUR ---
RN NOTES BS-187 MG/DL COVERAGE GIVEN , HELD BP MEDICATION BECAUSE OF LOW BP 110/68. PATIENT STABLE. PATIENT REALLY INSIST TO GO HOME. DAUGHTER NEXT TO THE BED. MD GARCIA AWARE OF. ENDORSED ONCOMING NURSE FOR PLAN OF CARE.
== END 2018-12-10 19:50 | disposition home or self-care (01) | DRG 280 ==
LOC: ER 11:58 → TELE 14:19
PROVIDERS: ADMIT Internal Medicine; ATTEND Internal Medicine
PROC: 30233N1 Transfusion of Nonautologous Red Blood Cells into Peripheral Vein, Percutaneous Approach (ICD-10-PCS; principal; 2018-12-10)
DX: I13.0 Hypertensive heart and chronic kidney disease with heart failure and stage 1 through stage 4 chronic kidney disease, or unspecified chronic kidney disease (principal); I50.33 Acute on chronic diastolic (congestive) heart failure; I21.4 Non-ST elevation (NSTEMI) myocardial infarction; N17.0 Acute kidney failure with tubular necrosis; J96.21 Acute and chronic respiratory failure with hypoxia; E66.01 Morbid (severe) obesity due to excess calories; I48.91 Unspecified atrial fibrillation; N18.9 Chronic kidney disease, unspecified; Z98.890 Other specified postprocedural states; Z92.3 Personal history of irradiation; Z90.710 Acquired absence of both cervix and uterus; Z85.3 Personal history of malignant neoplasm of breast; Z79.899 Other long term (current) drug therapy; Z79.4 Long term (current) use of insulin; Z90.12 Acquired absence of left breast and nipple; D63.8 Anemia in other chronic diseases classified elsewhere; E10.22 Type 1 diabetes mellitus with diabetic chronic kidney disease; I35.0 Nonrheumatic aortic (valve) stenosis; F41.9 Anxiety disorder, unspecified; F32.9 Major depressive disorder, single episode, unspecified; E78.5 Hyperlipidemia, unspecified
CPT/HCPCS: 36415; 71045-TC; 80048-TC; 80053-TC; 80061-TC; 80076-TC; 82962-TC; 83735-TC; 83880; 84100-TC; 84443-TC; 84484-TC; 85025-TC; 85730-TC; 86850-TC; 86921-TC; 87081-TC; 93307-TC; G0378; J1815; J1940; J3490; J7050; P9016-BL